=== PATIENT | female | born 1945 | race Caucasian/White ===

== ENCOUNTER → 2018-01-19 15:03 | Outpatient (CLI) | payer OTHER, SELFPAY ==
--- NOTE | 2018-01-19 15:09 | DI.RAD.S_ITS ---
PROCEDURE: XR CHEST 2V INDICATIONS: 73 old woman with cough. TECHNIQUE: 2 views of the chest were acquired. COMPARISON: [facility], , CHEST 2 VIEW, 08/16/2013, 9:53. FINDINGS: Surgical changes and devices: None. Lungs and pleura: No pleural effusions or pneumothorax. Lungs are clear. Mediastinum: Mediastinal contours are normal. Heart size is normal. Bones and chest wall: No suspicious bony abnormalities. Soft tissues appear unremarkable. IMPRESSION: No acute cardiopulmonary disease. Dictated by: Kevon Wheeler M.D. on 01/19/2018 at 16:39 Approved by: Kevon Wheeler M.D. on 01/19/2018 at 16:39
[2018-01-19 15:56] LABS: Add Manual Diff / Slide Review NO; Basophils Percent Auto 0.5 % (0-2); Hematocrit 40.4 % (36-46); Hemoglobin 13.9 g/dL (12.0-16.0); Lymphocytes Percent Auto 24.7 % (25-40); Mean Corpuscular HGB Conc 34.3 % (30-36); Mean Corpuscular Volume 84.5 fL (80-100); Monocytes Percent Auto 7.3 % (3-14); Neutrophils Absolute Auto 6600 /uL (3000-5900); Neutrophils Percent Auto 66.5 % (50-75); Platelet Count 309 X10^3/uL (150-400); Red Blood Cell Count 4.78 X10^6/uL (4.0-5.2); Red Cell Distribution Width 13.4 % (11.6-14.8); White Blood Cell Count 9.9 X10^3/uL (4.5-11.0)
[2018-01-19 16:54] LABS: Alanine Aminotransferase 19 IU/L (9-52); Albumin 4.2 g/dL (3.5-5.0); Albumin Globulin Ratio 1.4 (1.0-2.8); Alkaline Phosphatase 80 U/L (38-126); Aspartate Aminotransferase 16 IU/L (14-36); BUN Creatinine Ratio 21.7 (6-22); Bilirubin Total 0.4 mg/dL (0.2-1.3); Blood Urea Nitrogen 13 mg/dL (7-17); Calcium 9.5 mg/dL (8.4-10.2); Carbon Dioxide 25 mmol/L (22-32); Chloride 103 mmol/L (98-107); Estimated Glomerular Filt Rate > 60.0 mL/min (>60); Glucose 86 mg/dL (80-110); HEMOLYSIS < 15 (0-50); Potassium 4.4 mmol/L (3.4-5.1); Sodium 137 mmol/L (137-145); Total Protein 7.2 g/dL (6.3-8.2)
[2018-01-19 17:25] LABS: TSH w/ Reflex to FT4 1.82 uIU/mL (0.47-4.68)
== END ==
PROVIDERS: PCP Family Medicine; Visit Provider Family Medicine
DX: M79.7 Fibromyalgia (principal); K58.9 Irritable bowel syndrome, unspecified
CPT/HCPCS: 36415; 71046; 80053; 84443; 85025

== ENCOUNTER → 2018-05-03 12:38 | Outpatient (CLI) | payer OTHER, SELFPAY ==
--- NOTE | 2018-05-03 12:40 | DI.RAD.S_ITS ---
PROCEDURE: FL UPPER GI SERIES INDICATIONS: cough horseness gerd COMPARISON: None. FINDINGS: KUB: Preprocedural watch crystal molder film demonstrates a normal bowel gas pattern. No suspicious abdominal calcifications. Visualized solid organ contours appear normal. Bony structures appear unremarkable. Esophagus: Esophageal mucosa is normal on single-contrast views, and there is normal esophageal peristalsis. 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 No hiatal hernia or elicited gastroesophageal reflux. Stomach: The stomach is normally distensible, with normal rugal fold thickness. No mucosal masses or ulcers. Pylorus and duodenal bulb appear normal in morphology. Duodenal folds are normal in thickness as well. IMPRESSION: There is a smoothly marginated stricture which resistance passage of a 13 mm calibrated barium tablet for 3 minutes at the esophagogastric junction. A polypoid mass is not seen. The gastric lumen visualized and proximal small bowel appears normal. The patient reports significant reflux symptomatology over the course of this examination both spontaneous or elicited gastroesophageal reflux could not be documented. Dictated by: Ray Parada M.D. on 05/03/2018 at 13:39 Approved by: Ray Parada M.D. on 05/03/2018 at 13:42
== END ==
PROVIDERS: PCP Family Medicine; Visit Provider Family Medicine
DX: K22.2 Esophageal obstruction (principal); K21.9 Gastro-esophageal reflux disease without esophagitis; R49.0 Dysphonia; R05 Cough; E66.01 Morbid (severe) obesity due to excess calories
CPT/HCPCS: 74240

== ENCOUNTER 2018-11-14 09:30 | Emergency (ER) | payer OTHER, SELFPAY ==
[2018-11-14 09:35] VITALS: BP 119/77; PULSE 79; RESP 18; TEMP 35.9; O2SAT 97; BMI 30.7
[2018-11-14] MEDS: ALBUTEROL 2.5 MG/3 ML NEB (ADULT) INH (10:01)
[2018-11-14 10:02] VITALS: PULSE 74; RESP 16; O2SAT 98
[2018-11-14 11:03] VITALS: PULSE 73; RESP 16; O2SAT 100
--- NOTE | 2018-11-14 11:08 | ED.ALLEREA ---
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 this morning while she was riding in the car with the windows open. She reports pulled the stinger out from unaffected area after the burning sensation. She reports discomfort, redness, small swelling to left forearm along some difficulty breathing. She denies swelling to her tongue, throat or lips. She had taken Benadryl 25 mg p.o. prior to arrive in ED. Also she mixed half of the tab/cap of Benadryl makes with April water and applied on affected side. She received a of albuterol nebulizer treatment and has been using ice pack on affected site before evaluated by me. Related Data Previous Rx's Medication Instructions Recorded Nebulizer: Home Unit 0 dev INH BID #1 10/26/12 nystatin [Nyamyc] 100,000 u TOPICAL BID #1 bot 05/30/16 ACETAMINOPHEN 650 mg PO Q6HP PRN #300 tab 06/13/16 ipratropium-albuterol 3 ml IH BID #1 box 06/16/16 epinephrine [EpiPen Jr 2-Norbert] 0.15 mg IM PRN PRN #1 pkg 10/10/16 ysrpzwbkri-ikepjecxgepqy-nemn 1 tab PO Q6HP PRN #30 tab 07/14/17 indomethacin 25 mg PO TIDCC #90 cap 09/30/17 diphenoxylate-atropine 2.5 1 tab PO Q6HP PRN #20 tab 01/12/18 mg-0.025 mg tablet pseudoephedrine 30 mg tablet 30 mg PO Q4-6H PRN #30 tab 01/14/18 cyclobenzaprine 10 mg PO Q8HP #20 tab 01/20/18 ketoconazole [Nizoral] 2 % TOPICAL EVERY OTHER DAY #120 ml 01/20/18 dicyclomine 20 mg PO QDAY #90 tabs 06/03/18 famotidine 40 mg tablet 40 mg PO DAILY #60 tab 07/14/18 albuterol sulfate [Ventolin HFA] 1 puff INH Q6HP PRN #18 gm 07/15/18 beclomethasone dipropionate [Qvar] 1 puff INH BID #1 inh 07/15/18 alprazolam 0.25 mg tablet 0.25 mg PO ONCE PRN #30 tab 10/19/18 methocarbamol 500 mg tablet 500 mg PO QIDP PRN #30 tab 10/19/18 diclofenac 1 % topical gel 2 gram TOPICAL BIDP PRN #100 gram 10/22/18 prednisone 40 mg PO DAILY 4 Days #8 tab 11/14/18 Allergies Allergy/AdvReac Type Severity Reaction Status Date / Time venom-honey bee Allergy Severe Anaphylaxis Verified 11/14/18 09:45 [BEE VENOM (HONEY BEE)] crab Allergy Intermediate SWELLING, Verified 11/14/18 09:45 RASH, HIVES amoxicillin [AMOXICILLIN] Allergy Mild RASH Verified 11/14/18 09:45 codeine [CODEINE] Allergy Mild Verified 11/14/18 09:45 doxycycline [DOXYCYCLINE] Allergy Unknown Verified 11/14/18 09:45 petrolatum,white AdvReac Mild FAINT FROM Verified 11/14/18 09:45 [From PETROLEUM JELLY] FUMES hydrocodone [From VICODIN] AdvReac Unknown N/V Verified 11/14/18 09:45 morphine [MORPHINE] AdvReac Unknown N/V Verified 11/14/18 09:45 Review of Systems <TIMMY Branch - Last Filed: 11/14/18 22:06> Review of Systems General: Denies fever, chills, fatigue, malaise, sweats. HEENT: Denies sinus pain, ear pain, sore throat, difficulty swallowing, dizziness. Respiratory: Reports wheezing and dyspnea. Denies cough, hemoptysis, sputum, oropharyngeal edema Cardiovascular: Denies chest pain, palpitations, orthopnea, edema. Gastrointestinal: Denies nausea, vomiting, abdominal pain : Denies dysuria, frequency, incontinence, hematuria, urinary retention. Musculoskeletal: Denies weakness, joint pain or bony pain. Skin: See HPI Neurologic: Denies weakness, headache, numbness, change in speech, confusion, seizures, incoordination. Psychiatric: No concerning psychosocial issues. 12-point review of systems is negative except for those stated above. PFSH <TIMMY Branch - Last Filed: 11/14/18 22:06> Medical History Asthma (Chronic) Diverticular disease (Chronic) Fibromyalgia (Chronic) GERD (gastroesophageal reflux disease) (Chronic) IBS (irritable bowel syndrome) (Chronic) Sleep apnea (Chronic) Surgical History Deviated septum (Resolved) History of knee surgery (Resolved) Social History marital status: Smoking Status: Never smoker alcohol intake: never Social History marital status: Smoking Status: Never smoker alcohol intake: never Exam <TIMMY Branch - Last Filed: 11/14/18 22:06> Narrative Exam Narrative: GEN: Alert, oriented x 3, well appearing and nourished, and in no acute distress but apprehensive. Head: Normal cephalic, atraumatic. No scalp or temporal tenderness, palpable mass or rash. EYES: Pupils are equal, round, and reactive to light and accommodation. Extraocular muscles are intact bilaterally. There is no subconjunctival hemorrhage, exudate and sclera non-icteric. ENT: Hearing grossly intact. Nose without bleeding, purulent discharge. Mucous membrane moist, no mucosal lesion. Throat without erythema, tonsillar hypertrophy or exudate. Uvula in midline, airway patent without oropharyngeal edema. Neck: Trachea in midline. No JVD, non-tender without lymphadenopathy. No masses or thyroid megaly. Supple, non-tender and meningeal signs. CARDIAC: Normal regular rate and rhythm without murmurs, gallops, or rubs. No chest wall tenderness. No peripheral edema, cyanosis or pallor. Capillary refill is less than 2 seconds. RESPIRATORY: Lungs are cleat to auscultate bilaterally. No cough, wheezes, rales, or rhonchi. No stridor, respiratory distress, increase work of breathing, or accessary muscle used. Able to speak full sentences without difficulty. ABD: Abdomen soft, nontender and non-distended. No guarding or rebound tenderness to palpate. Bowel sounds are normal in all 4 quadrants. There is no palpable masses or organomegaly. EXT: Full painless ROM of all extremities with no loss of sensation, strength, effusion or edema. SKIN: <0.5 cm mildly elevated red papule on L volar aspect of forearm. Warm, dry, normal color for patient. No other erythema, lesions or rash. BACK: Nontender without deformity or crepitance. No flank tenderness. NEUROLOGICAL: Alert and oriented to place, time and person. Sensation and motor function intact bilaterally. No facial droops, dysphasia. PSYCHIATRIC: Good judgement and reason, without hallucinations, abnormal affect or abnormal behaviors during the examination. Initial Vital Signs Initial Vital Signs: Vital Signs Temperature 96.7 F L 11/14/18 09:35 Pulse Rate 79 11/14/18 09:35 Respiratory Rate 18 11/14/18 09:35 Blood Pressure 119/77 11/14/18 09:35 Pulse Oximetry 97 11/14/18 09:35 <Janessa Osborne MD - Last Filed: 11/16/18 07:44> Initial Vital Signs Initial Vital Signs: Vital Signs Temperature 96.7 F L 11/14/18 09:35 Pulse Rate 79 11/14/18 09:35 Respiratory Rate 18 11/14/18 09:35 Blood Pressure 119/77 11/14/18 09:35 Pulse Oximetry 97 11/14/18 09:35 Course <TIMMY Branch - Last Filed: 11/14/18 22:06> Orders Ordered: Discontinued Medications Albuterol (Ventolin) 2.5 mg INH NOW ONE Stop: 11/14/18 09:58 Last Admin: 11/14/18 10:01 Dose: 2.5 mg Prednisone (Deltasone) 40 mg PO NOW ONE Stop: 11/14/18 11:09 Last Admin: 11/14/18 12:13 Dose: 40 mg Ranitidine HCl (Zantac) 150 mg PO NOW ONE Stop: 11/14/18 11:09 Last Admin: 11/14/18 12:13 Dose: 150 mg Vital Signs - 8 hr 11/14/18 09:35 11/14/18 10:02 11/14/18 11:03 Temperature 96.7 F L Pulse Rate 79 74 73 Respiratory Rate 18 16 16 Blood Pressure 119/77 Blood Pressure [Left Arm] Pulse Oximetry 97 98 100 11/14/18 12:14 Temperature Pulse Rate 78 Respiratory Rate 16 Blood Pressure Blood Pressure [Left Arm] 133/78 Pulse Oximetry 100 <Janessa Osborne MD - Last Filed: 11/16/18 07:44> Orders Ordered: Discontinued Medications Albuterol (Ventolin) 2.5 mg INH NOW ONE Stop: 11/14/18 09:58 Last Admin: 11/14/18 10:01 Dose: 2.5 mg Prednisone (Deltasone) 40 mg PO NOW ONE Stop: 11/14/18 11:09 Last Admin: 11/14/18 12:13 Dose: 40 mg Ranitidine HCl (Zantac) 150 mg PO NOW ONE Stop: 11/14/18 11:09 Last Admin: 11/14/18 12:13 Dose: 150 mg Vital Signs - 8 hr 11/14/18 09:35 11/14/18 10:02 11/14/18 11:03 Temperature 96.7 F L Pulse Rate 79 74 73 Respiratory Rate 18 16 16 Blood Pressure 119/77 Blood Pressure [Left Arm] Pulse Oximetry 97 98 100 11/14/18 12:14 Temperature Pulse Rate 78 Respiratory Rate 16 Blood Pressure Blood Pressure [Left Arm] 133/[address] [facility] - Allergic Reaction <TIMMY Branch - Last Filed: 11/14/18 22:06> Differential Diagnosis Differential diagnosis: Likely anaphylaxis and allergic reaction Medical Records Attestation: I reviewed the patient's medical records. 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 She verbalized some difficulty breathing and wheezing and she had taken own Benadryl 25 mg prior she arrived in the ED. She reports had melted half tab of Benadryl with the april water and applied on affected site note this may help her. She was treated with 1 dose of nebulizer treatment prior to my evaluation. Her lungs were clear to auscultate without wheezing, stridor, no increase in accessory muscle used, breathing was easy and her airway was patent. The reaction was localized to the left forearm which has improved with her own Benadryl use and ice packs since she got to ED. Given her head Daniella history of anaphylactic allergy reaction, patient was medicated with prednisone and Zantac. Since she takes Pepcid daily at home she has not prescribed for home use. We discussed in length about using prednisone and a short burst duration without tapering this. Patient is initially expressed having a Medrol pack at home which she has used for last 7 or 8 months that was prescribed by her primary care physician. After lengthy discussion about allergic reaction and treatment with Benadryl, histamine alba, and steroids, the patient agrees to the plan of care. Multiple questions expressed by the patient on medications were answered for clarification. We also discussed in length on red flag symptoms such as oropharyngeal edema, chest pain, difficulty breathing, feeling faint and to call emergency services. Also we discussed signs and symptoms for local skin infection such as increasing redness/swelling/pain/warmth/pain/fever and the patient verbalized the understanding. Discharge Plan Departure Patient Disposition: Home Clinical Impression: Allergic reaction to bee sting Discharge Date/Time: 11/14/18 12:05 Interventions: ED Discharge Assessment Last Done: 11/14/18 12:05 Instructions: DI for Insect Allergy Activity Restrictions/Additional Instructions: You have been diagnosed with [ bee sting allergy reaction ]. What to do: *Take your medications as directed. 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 Today it does not appear that you're having anaphylactic allergic reaction here. You could continue use you're Pepcid (famotidine) once a day for a histamine alba and this works for her allergy as well. Your blood glucose may be increased and her stomach may be upset due to prednisone, so please take precaution. *Follow up with your primary care provider in 2-3 days, call for an appointment. Let them know you were seen in the ED and that we asked you to be seen in follow up. *Return to ED if you have any new, worsening, or concerning symptoms, such as [swelling to her tongue or throat, difficulty breathing, chest pain, fainting, if the area under arm has increased with swelling, redness, pain, pus-like discharge, fever]. Prescriptions: New prednisone 20 mg tablet 40 mg PO DAILY 4 Days Qty: 8 RF: 0 No Action Nebulizer: Home Unit INH BID Qty: 1 RF: 0 nystatin [Nyamyc] 30 GM powder 100,000 u Topical BID Qty: 1 RF: 1 ACETAMINOPHEN 650 mg PO Q6HP PRNQty: 300 RF: 5 ipratropium-albuterol 3 ML solution for nebulization 3 ml IH BID Qty: 1 RF: 2 epinephrine [EpiPen Jr 2-Norbert] 0.15 MG/0.3 ML auto-injector 0.15 mg IM PRN PRNQty: 1 RF: 1 djlzjthhjn-autjfoufsbfml-accg 1 EACH tablet 1 tab PO Q6HP PRNQty: 30 RF: 1 indomethacin 25 mg capsule 25 mg PO TIDCC Qty: 90 RF: 0 diphenoxylate-atropine 2.5-0.025 mg tablet 1 tab PO Q6HP PRN (Reason: diarrhea) Qty: 20 RF: 0 cyclobenzaprine 10 mg tablet 10 mg PO Q8HP Qty: 20 RF: 2 ketoconazole [Nizoral] 2 % shampoo 2 % Topical EVERY OTHER DAY Qty: 120 RF: 3 dicyclomine 20 mg tablet 20 mg PO QDAY Qty: 90 RF: 2 famotidine [Pepcid] 40 mg tablet 40 mg PO DAILY Qty: 60 RF: 11 Qvar 80 mcg/actuation aerosol 1 puff INH BID Qty: 1 RF: 11 albuterol sulfate [Ventolin HFA] 90 mcg/actuation HFA aerosol inhaler 1 puff INH Q6HP PRNQty: 18 RF: 3 methocarbamol 500 mg tablet 500 mg PO QIDP PRN (Reason: PAIN) Qty: 30 RF: 2 alprazolam 0.25 mg tablet 0.25 mg PO ONCE PRN (Reason: anxiety) Qty: 30 RF: 1 diclofenac sodium [Voltaren] 1 % gel 2 gram Topical BIDP PRN (Reason: pain) Qty: 100 RF: 0 pseudoephedrine HCl [Sudafed] 30 mg tablet 30 mg PO Q4-6H PRN (Reason: nasal congestion) Qty: 30 RF: 3 Referrals: Nithin Adkins MD [Primary Care Provider] -
[2018-11-14] MEDS: predniSONE 20 MG TABLET 40 MG PO (12:13)
[2018-11-14 12:14] VITALS: BP 133/78; PULSE 78; RESP 16; O2SAT 100
== END 2018-11-14 12:05 | disposition home or self-care (01) ==
PROVIDERS: Emergency Provider Nurse Practitioner Family; PCP Family Medicine
DX: T63.441A Toxic effect of venom of bees, accidental (unintentional), initial encounter (principal)
CPT/HCPCS: 94640; 99283; J7613

== ENCOUNTER → 2020-06-26 14:12 | Outpatient (CLI) | payer OTHER, SELFPAY ==
--- NOTE | 2020-06-26 14:14 | DI.RAD.S_ITS ---
PROCEDURE: XR CERVICAL SPINE 2V OR 3V INDICATIONS: Neck and shoulder pain TECHNIQUE: 3 view(s) of the cervical spine were acquired. COMPARISON: [facility], CERVICAL SPINE 2 OR 3 VIEWS, 04/23/2011, 15:39. [facility], CERVICAL SPINE 2 OR 3 VIEWS, 12/15/2013, 17:16. [facility], C-SPINE COMPLETE 6 OR MORE VWS, 11/02/2014, 17:21. FINDINGS: Bones: No fractures or dislocations to the C6 level. The lateral masses of C1 appear intact on the odontoid view. No suspicious bony lesions. There is severe degenerative disc disease at C5-C6 and C6-C7. Bilateral facet arthropathy, severe at C3-C4 and C4-C5. Soft tissues: No prevertebral soft tissue swelling. IMPRESSION: Severe degenerative disc and facet disease in cervical. Dictated by: Kevon Wheeler M.D. on 06/26/2020 at 15:54 Approved by: Kevon Wheeler M.D. on 06/26/2020 at 16:06
--- NOTE | 2020-06-26 14:14 | DI.RAD.S_ITS ---
PROCEDURE: XR SHOULDER LT MIN 2V INDICATIONS: Neck and shoulder pain TECHNIQUE: 3 views of the shoulder were acquired. COMPARISON: None. FINDINGS: Bones: No fractures or dislocations. No suspicious bony lesions. Visualized ribs appear intact. There is bhrsybvx-qk-mqxcwd glenohumeral joint and acromioclavicular joint degeneration. Soft tissues: Superior migration of humeral head, likely secondary to rotator cuff tendon tear. IMPRESSION: 1. Qavxuphh-ts-qyjyxa osteoarthritis of the left shoulder. 2. Suspect rotator the cuff tendon tear. MRI is recommended for further evaluation if clinically indicated. Dictated by: Kevon Wheeler M.D. on 06/26/2020 at 17:27 Approved by: Kevon Wheeler M.D. on 06/26/2020 at 17:29
== END ==
PROVIDERS: PCP Family Medicine; Referring Provider Family Medicine; Visit Provider Family Medicine
DX: M25.512 Pain in left shoulder (principal); M19.012 Primary osteoarthritis, left shoulder; M50.322 Other cervical disc degeneration at C5-C6 level; M47.812 Spondylosis without myelopathy or radiculopathy, cervical region
CPT/HCPCS: 72040; 73030

== ENCOUNTER → 2021-04-04 12:10 | Outpatient (CLI) | payer OTHER, SELFPAY ==
--- NOTE | 2021-04-04 12:12 | DI.MG.S_ITS ---
BILATERAL DIGITAL DIAGNOSTIC MAMMOGRAM 3D/2D: 04/04/2021 CLINICAL: Right breast pain. Comparison is made to exams dated: 08/26/2017 mammogram, 01/16/2012 mammogram, and 08/30/2010 mammogram - [facility]. There are scattered fibroglandular elements in both breasts. No significant masses, calcifications, or other findings are seen in either breast. Specifically, no finding to explain the patient's diffuse bilateral pain. IMPRESSION: NEGATIVE There is no abnormality seen in either breast or in either axilla to correspond with the diffuse pain in the upper outer quadrant and in axillae. There is no mammographic evidence of malignancy. Return to annual mammogram screening schedule is recommended. Findings and recommendations were conveyed to the patient at time of exam. This exam was interpreted at Station ID: [id number]. NOTE: For mammograms, a report in lay terms will be sent to the patient. Approximately 15% of breast malignancies will not be visualized mammographically. In the management of a palpable breast mass, a negative mammogram must not discourage biopsy of a clinically suspicious lesion. Electronically Signed By: Barbie bill/:04/04/2021 13:04:44 letter sent: Normal Exam ACR BI-RADS Category 1: Negative [id number]
== END ==
PROVIDERS: PCP Family Medicine; Referring Provider Physician Assistant; Visit Provider Physician Assistant
DX: N64.4 Mastodynia (principal)
CPT/HCPCS: 77066; G0279

== ENCOUNTER → 2021-11-15 07:33 | Outpatient (CLI) | payer OTHER, SELFPAY ==
[2021-11-15 08:30] LABS: Add Manual Diff / Slide Review NO; Basophils Absolute Auto 100 /uL (0-100); Basophils Percent Auto 0.6 % (0-2); Eosinophils Absolute Auto 100 /uL (0-450); Hematocrit 34.1 % (36-46); Hemoglobin 11.6 g/dL (12.0-16.0); Lymphocytes Absolute Auto 1900 /uL (1100-4500); Lymphocytes Percent Auto 19.3 % (25-40); Mean Corpuscular Hemoglobin 27.7 PG (26-34); Mean Corpuscular Volume 81.5 fL (80-100); Monocytes Absolute Auto 800 /uL (0-900); Monocytes Percent Auto 7.9 % (3-14); Neutrophils Absolute Auto 6800 /uL (1500-7000); Neutrophils Percent Auto 71.2 % (50-75); Platelet Count 358 X10^3/uL (150-400); Red Blood Cell Count 4.19 X10^6/uL (4.0-5.2); White Blood Cell Count 9.6 X10^3/uL (4.5-11.0)
[2021-11-15 09:24] LABS: Alanine Aminotransferase 9 IU/L (<35); Albumin 4.2 g/dL (3.5-5.0); Albumin Globulin Ratio 1.4 (1.0-2.8); Alkaline Phosphatase 77 U/L (38-126); Aspartate Aminotransferase 16 IU/L (14-36); Bilirubin Total 0.9 mg/dL (0.2-1.3); Blood Urea Nitrogen 11 mg/dL (7-17); Calcium 9.5 mg/dL (8.4-10.2); Carbon Dioxide 24 mmol/L (22-32); Chloride 102 mmol/L (98-107); Estimated Glomerular Filt Rate > 60 mL/min (>60); Globulin 3.1 g/dL (1.7-4.1); Glucose 91 mg/dL (80-110); HEMOLYSIS < 15 (0-50); Potassium 4.3 mmol/L (3.4-5.1); Sodium 136 mmol/L (137-145); Total Protein 7.3 g/dL (6.3-8.2)
[2021-11-15 09:57] LABS: TSH w/ Reflex to FT4 1.93 uIU/mL (0.47-4.68)
== END ==
PROVIDERS: PCP Family Medicine; Referring Provider Family Medicine; Visit Provider Family Medicine
DX: Z13.9 Encounter for screening, unspecified (principal)
CPT/HCPCS: 36415; 80053; 84443; 85025

== ENCOUNTER → 2022-05-25 10:13 | Outpatient (CLI) | payer OTHER, SELFPAY ==
[2022-05-25 10:54] LABS: Hematocrit 34.6 % (36-46); Hemoglobin 11.5 g/dL (12.0-16.0)
[2022-05-25 11:07] LABS: HEMOLYSIS < 15 (0-50); Iron 38 ug/dL (37-170)
[2022-05-25 11:16] LABS: Transferrin 200 mg/dL (206-381)
[2022-05-25 11:17] LABS: Percent Iron Saturation 15 % (15-50); Total Iron Binding Capacity 260 ug/dL (265-497)
[2022-05-25 11:19] LABS: Ferritin 38 ng/mL (11-264)
== END ==
PROVIDERS: PCP Family Medicine; Referring Provider Physician Assistant; Visit Provider Physician Assistant
DX: D50.9 Iron deficiency anemia, unspecified (principal)
CPT/HCPCS: 36415; 82728; 83540; 83550; 85014; 85018

== ENCOUNTER → 2022-09-04 13:16 | Outpatient (CLI) | payer OTHER, SELFPAY | PROVIDERS: Absent Provider Family Medicine; Family Provider Family Medicine; PCP Family Medicine; Referring Provider Physical Medicine & Rehabilitation; Visit Provider Physical Medicine & Rehabilitation | DX: M47.22 Other spondylosis with radiculopathy, cervical region (principal); G56.00 Carpal tunnel syndrome, unspecified upper limb | CPT/HCPCS: 95885; 95886; 95910 ==

== ENCOUNTER → 2022-10-06 14:41 | Outpatient (CLI) | payer OTHER, SELFPAY ==
[2022-10-06 16:23] LABS: Hematocrit 34.6 % (36-46); Hemoglobin 11.4 g/dL (12.0-16.0)
[2022-10-06 16:53] LABS: HEMOLYSIS < 15 (0-50); Iron 18 ug/dL (37-170)
[2022-10-06 17:04] LABS: Percent Iron Saturation 6 % (15-50); Total Iron Binding Capacity 285 ug/dL (265-497); Transferrin 206 mg/dL (206-381)
== END ==
PROVIDERS: Family Provider Family Medicine; PCP Family Medicine; Referring Provider Family Medicine; Visit Provider Family Medicine
DX: D50.9 Iron deficiency anemia, unspecified (principal)
CPT/HCPCS: 36415; 83540; 83550; 85014; 85018

== ENCOUNTER → 2022-11-24 16:08 | Outpatient (CLI) | payer OTHER, SELFPAY ==
[2022-11-24 16:42] LABS: Hematocrit 32.9 % (36-46); Hemoglobin 10.9 g/dL (12.0-16.0)
[2022-11-24 17:39] LABS: Ferritin 55 ng/mL (11-264)
[2022-12-11 13:36] LABS: Appearance Urine UA CLEAR; Bilirubin Urine UA NEGATIVE (NEGATIVE); Color Urine UA YELLOW; Glucose Urine UA NEGATIVE (Negative); Ketones Urine UA NEGATIVE (NEGATIVE); Leukocyte Esterase Urine UA NEGATIVE (NEGATIVE); Nitrite Urine UA NEGATIVE (Negative); Occult Blood Urine UA NEGATIVE (Negative); Protein Urine UA NEGATIVE (Negative); Urobilinogen Urine UA 0.2 E.U./dL (0.2)
[2022-12-11 13:54] LABS: pH Urine UA 6.5 (4.5-8.0)
[2022-12-11 14:00] LABS: Bacteria Urine None Seen; Culture Indicated Urine Cult Not Indicated; RBC Urine None Seen (0-5/HPF); Squamous Epithelial Cell Urine None Seen (0-5/HPF); WBC Urine None Seen (0-5/HPF)
== END ==
PROVIDERS: Family Provider Family Medicine; PCP Family Medicine; Referring Provider Family Medicine; Visit Provider Family Medicine
DX: D64.9 Anemia, unspecified (principal); R30.0 Dysuria
CPT/HCPCS: 36415; 81001; 82728; 85014; 85018

== ENCOUNTER → 2023-04-23 12:46 | Outpatient (CLI) | payer OTHER, SELFPAY ==
[2023-04-23 13:46] LABS: Add Manual Diff / Slide Review NO; Basophils Absolute Auto 100 /uL (0-100); Basophils Percent Auto 0.5 % (0-2); Eosinophils Absolute Auto 100 /uL (0-450); Eosinophils Percent Auto 1.1 % (2-4); Hematocrit 33.1 % (36-46); Lymphocytes Absolute Auto 2200 /uL (1100-4500); Lymphocytes Percent Auto 16.3 % (25-40); Mean Corpuscular HGB Conc 33.1 % (30-36); Mean Corpuscular Hemoglobin 26.6 PG (26-34); Mean Corpuscular Volume 80.6 fL (80-100); Monocytes Absolute Auto 1000 /uL (0-900); Monocytes Percent Auto 7.1 % (3-14); Neutrophils Absolute Auto 10200 /uL (1500-7000); Platelet Count 401 X10^3/uL (150-400); Red Blood Cell Count 4.11 X10^6/uL (4.0-5.2); Red Cell Distribution Width 14.2 % (11.6-14.8); White Blood Cell Count 13.6 X10^3/uL (4.5-11.0)
[2023-04-23 14:03] LABS: Alanine Aminotransferase 11 IU/L (<35); Albumin 3.9 g/dL (3.5-5.0); Albumin Globulin Ratio 1.1 (1.0-2.8); Alkaline Phosphatase 88 U/L (38-126); BUN Creatinine Ratio 29.2 (6-22); Bilirubin Total 0.6 mg/dL (0.2-1.3); Blood Urea Nitrogen 14 mg/dL (7-17); Calcium 9.5 mg/dL (8.4-10.2); Carbon Dioxide 25 mmol/L (22-32); Chloride 99 mmol/L (98-107); Estimated Glomerular Filt Rate > 60 mL/min (>60); Globulin 3.7 g/dL (1.7-4.1); Glucose 95 mg/dL (80-110); HEMOLYSIS < 15 (0-50); Potassium 4.3 mmol/L (3.4-5.1); Sodium 132 mmol/L (137-145); Total Protein 7.6 g/dL (6.3-8.2)
[2023-04-23 14:07] LABS: HEMOLYSIS < 15 (0-50); Iron 30 ug/dL (37-170)
[2023-04-23 14:17] LABS: Percent Iron Saturation 12 % (15-50); Total Iron Binding Capacity 251 ug/dL (265-497); Transferrin 201 mg/dL (206-381)
[2023-04-23 14:38] LABS: Ferritin 42 ng/mL (11-264)
[2023-04-23 14:52] LABS: Vitamin B12 964 pg/mL (239-931)
[2023-04-24 15:27] LABS: Aspartate Aminotransferase 24 IU/L (14-36)
== END ==
PROVIDERS: Physician Assistant; Family Provider Family Medicine; PCP Family Medicine; Referring Provider Family Medicine; Visit Provider Family Medicine
DX: D50.9 Iron deficiency anemia, unspecified (principal); E53.8 Deficiency of other specified B group vitamins; E66.01 Morbid (severe) obesity due to excess calories; K58.9 Irritable bowel syndrome, unspecified
CPT/HCPCS: 36415; 80053; 82607; 82728; 83540; 83550; 85025

== ENCOUNTER → 2023-05-05 12:05 | Outpatient (CLI) | payer OTHER, SELFPAY ==
--- NOTE | 2023-05-05 12:07 | DI.RAD.S_ITS ---
PROCEDURE: XR HIP W PEL IF DONE HAMLET MIN 4V INDICATIONS: Worsening left hip; trouble w/gait balance TECHNIQUE: AP pelvis with lateral view(s) of the bilateral hip(s). COMPARISON: None. FINDINGS: Bones: No fractures or dislocations. Pelvic ring appears intact. No suspicious bony lesions. Severe bilateral degenerative hip joint space narrowing with subchondral sclerosis and periarticular osteophytes. It is slightly more prominent on the left. There is mild appearance of left femoral head flattening on the left. Soft tissues: The visualized bowel gas pattern is normal. No suspicious soft tissue calcifications. Significant colonic stool. 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 Dictated by: Giselle Diallo M.D. on 05/05/2023 at 17:47 Approved by: Giselle Diallo M.D. on 05/05/2023 at 17:49
== END ==
PROVIDERS: Family Provider Family Medicine; PCP Family Medicine; Referring Provider Physician Assistant; Visit Provider Physician Assistant
DX: M25.552 Pain in left hip (principal); R26.9 Unspecified abnormalities of gait and mobility; G89.29 Other chronic pain
CPT/HCPCS: 73522

== ENCOUNTER 2023-08-12 13:30 | Emergency (ER) | payer OTHER, SELFPAY ==
[2023-08-12] VITALS (22 sets, daily range): BP systolic 115–152; BP diastolic 58–69; PULSE 100–129; RESP 18–32; TEMP 37.3–37.4; O2SAT 92–99; BMI 28.3
--- NOTE | 2023-08-12 14:06 | PC.NURSE ---
Pt reports urinating fecal matter. Pt was told she had a CVF and states she has a hx of IBS. Pt reports home temp 99.2
[2023-08-12 14:48] LABS: Culture Indicated Urine Cult Not Indicated
[2023-08-12 15:12] LABS: Hematocrit 35.4 % (36-46); Hemoglobin 11.4 g/dL (12.0-16.0); Mean Corpuscular HGB Conc 32.1 % (30-36); Mean Corpuscular Hemoglobin 25.6 PG (26-34); Mean Corpuscular Volume 79.9 fL (80-100); Platelet Count 643 X10^3/uL (150-400); Red Blood Cell Count 4.43 X10^6/uL (4.0-5.2); White Blood Cell Count 28.7 X10^3/uL (4.5-11.0)
[2023-08-12 15:22] LABS: Add Manual Diff / Slide Review YES
[2023-08-12 15:25] LABS: Alanine Aminotransferase 10 IU/L (<35); Albumin 4.1 g/dL (3.5-5.0); Albumin Globulin Ratio 1.1 (1.0-2.8); Alkaline Phosphatase 128 U/L (38-126); Aspartate Aminotransferase 15 IU/L (14-36); BUN Creatinine Ratio 27.3 (6-22); Blood Urea Nitrogen 18 mg/dL (7-17); Calcium 9.7 mg/dL (8.4-10.2); Carbon Dioxide 19 mmol/L (22-32); Chloride 103 mmol/L (98-107); Estimated Glomerular Filt Rate > 60 mL/min (>60); Globulin 3.8 g/dL (1.7-4.1); Glucose 134 mg/dL (80-110); HEMOLYSIS 21 (0-50); Lipase < 10 U/L (23-300); Potassium 4.5 mmol/L (3.4-5.1); Sodium 134 mmol/L (137-145); Total Protein 7.9 g/dL (6.3-8.2)
[2023-08-12 16:03] LABS: Neutrophils Absolute Manual 26117 /uL (3000-5900); Total Cells Counted 100
[2023-08-12 16:04] LABS: RBC Morphology Normal Morphology; Toxic Granulation Present
[2023-08-12 16:36] LABS: Lactate (Lactic Acid) 1.9 mmol/L (0.7-2.1)
--- NOTE | 2023-08-12 16:51 | ED_ITS ---
HPI - General Adult <Lianna Henriquez MD - Last Filed: 08/17/23 07:35> General Chief complaint: Urogenital-Female Stated complaint: CVF Fisutla Leaking Time Seen by Provider: 08/12/23 15:05 Source: patient and EMS Mode of arrival: EMS History of Present Illness HPI narrative: 78-year-old woman with a complex medical history including fibromyalgia, colitis, avascular necrosis of the left hip needing surgery, chronic pain with recurrent trigger injections who comes in today complaining of colovesical fistula. In looking through notes I do not see documentation of prior colovesical fistula however her report of general malaise for the last 6 weeks with increasing lower abdominal pain and then at 4:00 a.m. she got up to void and had essentially fecal material coming out of her urethra. She noted that she had some solid stool coming from her rectum as well. She continues to have fecal effluvium coming from her urethra and seems to be very clear that it is not from her vagina. She has not had a hysterectomy previously. She has not complaining of fever or shortness a breath. She does note that she is unable to extend flexor rotate her left hip because of the avascular necrosis and is hoping to have surgery for this in 2-3 months. Her review of systems is markedly positive which seems to be close to her baseline and includes headache, generalized myalgias, decreased appetite, no chest pain and no palpitations, upper abdominal pain, pelvic pain, increasing fatigue, does not note lower extremity edema Related Data Home Medications Medication Instructions Recorded Confirmed cholecalciferol (vitamin D3) 250 500 mcg PO DAILY 05/21/22 07/27/23 mcg (10,000 unit) capsule mecobalamin (vitamin B12) 1,000 500 mcg PO BID 05/21/22 07/27/23 mcg chewable tablet zinc gluconate 50 mg tablet 50 mg PO DAILY 05/21/22 07/27/23 hydroxychloroquine 200 mg tablet 200 mg PO DAILY 06/23/22 07/27/23 diphenhydramine HCl 25 mg capsule 25 mg PO DAILY PRN allergic 12/11/22 07/27/23 (Allergy (diphenhydramine)) reaction epinephrine 0.3 mg/0.3 mL 0.3 mg IM ONCE 12/11/22 07/27/23 injection, auto-injector pseudoephedrine HCl 120 mg 60 mg PO Q12H 12/11/22 07/27/23 tablet,extended release (Sudafed 12 Hour) ferrous gluconate 324 mg (38 mg 324 mg PO BID 05/05/23 07/27/23 iron) tablet Previous Rx's Medication Instructions Recorded diclofenac sodium 1 % topical gel 2 g topical BIDP PRN pain #100 05/21/22 grams dicyclomine 20 mg tablet See Rx Instructions .Route 09/10/22 .COMPLEX #90 tabs wafohporvt-lzwjvtrqeeksy-emymjmqh See Rx Instructions .Route 11/24/22 50 mg-325 mg-40 mg tablet .COMPLEX #30 tabs ketoconazole 2 % shampoo 1 applic topical 3XW #120 mL 01/02/23 indomethacin 25 mg capsule 25 mg PO 3XD #90 caps 02/12/23 methocarbamol 500 mg tablet See Rx Instructions .Route 04/03/23 .COMPLEX #30 tabs albuterol sulfate 90 mcg/actuation 1 puff inhalation Q4-6H PRN for 05/05/23 aerosol inhaler wheezing #18 grams lidocaine 4 % topical patch 1 patch topical .COMPLEX PRN pain 06/18/23 #10 ea gabapentin 100 mg capsule See Rx Instructions PO BEDTIME #30 06/25/23 caps alprazolam 0.25 mg tablet See Rx Instructions .Route 07/16/23 .COMPLEX #30 tabs diphenoxylate-atropine 2.5 1 tab PO Q6H PRN diarrhea #20 tabs 07/21/23 mg-0.025 mg tablet omeprazole 40 mg capsule,delayed 40 mg PO DAILY #90 caps 07/27/23 release Allergies Allergy/AdvReac Type Severity Reaction Status Date / Time venom-honey bee Allergy Severe Anaphylaxis Verified 07/27/23 15:10 [BEE VENOM (HONEY BEE)] crab Allergy Intermediate SWELLING, Verified 07/27/23 15:10 RASH, HIVES amoxicillin [AMOXICILLIN] Allergy Mild RASH Verified 07/27/23 15:10 codeine [CODEINE] Allergy Mild Verified 07/27/23 15:10 doxycycline [DOXYCYCLINE] Allergy Unknown Verified 07/27/23 15:10 petrolatum,white AdvReac Mild FAINT FROM Verified 07/27/23 15:10 [From PETROLEUM JELLY] FUMES hydrocodone [From VICODIN] AdvReac Unknown N/V Verified 07/27/23 15:10 morphine [MORPHINE] AdvReac Unknown N/V Verified 07/27/23 15:10 Review of Systems <Lianna Henriquez MD - Last Filed: 08/17/23 07:35> Review of Systems Narrative: Pertinent positive and negative findings as per HPI Patient History <Lianna Henriquez MD - Last Filed: 08/17/23 07:35> Medical History (Updated 08/12/23 @ 23:16 by Tamar Maya MD) Dysuria Spinal stenosis of lumbar region CTS (carpal tunnel syndrome) Left rotator cuff tear Breast pain, right Gynecomastia, female Chronic sinusitis Fibromyalgia GERD (gastroesophageal reflux disease) IBS (irritable bowel syndrome) Asthma Sleep apnea Diverticular disease Degeneration of intervertebral disc of cervical region (05/25/13) Surgical History (Updated 09/23/22 @ 15:24 by Ca Mitchell) Deviated septum History of knee surgery Social History (System 09/23/22 @ 15:24 by Ca Mitchell) marital status: Smoking Status: Never smoker alcohol intake: never Smoking Status: Never smoker Substance Use Type: does not use Exam <Lianna Henriquez MD - Last Filed: 08/17/23 07:35> Initial Vital Signs Initial Vital Signs: Vital Signs Pulse Rate 120 H 08/12/23 13:38 Blood Pressure 146/60 H 08/12/23 13:38 Pulse Oximetry 92 08/12/23 13:38 General: Somewhat disheveled but in no acute distress, remarkably tangential history eventually leading to presenting complaint, she is able to speak in full sentences HEENT: Moist mucous membranes, normal sclera with reactive pupils, Respiratory: Lungs are clear to auscultation, no wheezing no rales no rhonchi. Full and symmetrical air movement Cardiac: Regular rate and rhythm no murmurs no bruits Abdomen: Soft, lower abdominal tenderness without rebound or guarding Pelvic exam: Exam is significantly limited by the fact that she is in an ER gurney, she can not rotate her left hip at all. There is some minor irritation to the internal labia I do not appreciate any vaginal discharge at this time Skin: Warm and dry, no rashes Neurologic: Grossly neurologically intact with no obvious asymmetries or abnormalities Extremities: Limited movement left hip, 1+ bilateral lower extremity edema, well-perfused Psych: Cooperative, appropriate insight and affect <Tamar Maya MD - Last Filed: 08/13/23 01:22> Initial Vital Signs Initial Vital Signs: Vital Signs Pulse Rate 120 H 08/12/23 13:38 Blood Pressure 146/60 H 08/12/23 13:38 Pulse Oximetry 92 08/12/23 13:38 Course <Lianna Henriquez MD - Last Filed: 08/17/23 07:35> Orders Ordered: Discontinued Medications Sodium Chloride (Normal Saline 0.9%) 1,000 mls @ 1,000 mls/hr IV BOLUS ONE Stop: 08/12/23 18:10 Last Infusion: 08/12/23 19:41 Dose: Infused Documented By: Admin: 08/12/23 18:07 Dose: 1,000 mls/hr Documented By: JESSE Sodium Chloride (Normal Saline 0.9%) 1,000 mls @ 1,000 mls/hr IV BOLUS ONE Stop: 08/13/23 00:24 Last Infusion: 08/13/23 01:01 Dose: Infused Documented By: Admin: 08/12/23 23:49 Dose: 1,000 mls/hr Documented By: BRIDGER Ondansetron HCl (Ondansetron 4 Mg Odt) 4 mg PO NOW PRN PRN Reason: Nausea And Vomiting Ondansetron HCl (Ondansetron 4 Mg/2 Ml Inj) 4 mg IV NOW PRN PRN Reason: Nausea And Vomiting Vital Signs Vital signs: Vital Signs - 8 hr 08/12/23 17:30 08/12/23 17:30 08/12/23 18:08 Temperature Pulse Rate 113 H 109 H Respiratory Rate 22 Blood Pressure 140/64 Pulse Oximetry 96 96 Oxygen Delivery Method 08/12/23 18:30 08/12/23 19:00 08/12/23 19:30 Temperature Pulse Rate 105 H 102 H 119 H Respiratory Rate 20 32 H 31 H Blood Pressure Pulse Oximetry Oxygen Delivery Method 08/12/23 20:56 08/12/23 20:56 08/12/23 20:58 Temperature 99.3 F Pulse Rate 106 H 109 H Respiratory Rate 18 Blood Pressure 115/58 L 115/58 L Pulse Oximetry 97 97 Oxygen Delivery Method Room Air Room Air 08/12/23 22:23 04/24/24 22:24 08/12/23 22:24 Temperature Pulse Rate 105 H 105 H Respiratory Rate 19 Blood Pressure 140/63 Pulse Oximetry 95 99 Oxygen Delivery Method Room Air 08/12/23 22:30 08/12/23 22:30 08/12/23 23:00 Temperature Pulse Rate 106 H 107 H Respiratory Rate 21 22 Blood Pressure 152/69 H Pulse Oximetry 98 Oxygen Delivery Method Room Air 08/12/23 23:00 08/12/23 23:30 08/12/23 23:30 Temperature Pulse Rate 102 H Respiratory Rate 21 Blood Pressure 149/64 H 140/63 Pulse Oximetry 99 Oxygen Delivery Method Room Air 08/13/23 00:00 08/13/23 00:00 08/13/23 00:30 Temperature Pulse Rate 104 H 104 H Respiratory Rate 23 17 Blood Pressure 142/66 H 141/72 H Pulse Oximetry 98 98 Oxygen Delivery Method Room Air Room Air 08/13/23 00:30 08/13/23 01:00 Temperature Pulse Rate 107 H Respiratory Rate 20 Blood Pressure 141/72 H 132/63 Pulse Oximetry Oxygen Delivery Method <Tamar Maya MD - Last Filed: 08/13/23 01:22> Orders Ordered: Discontinued Medications Sodium Chloride (Normal Saline 0.9%) 1,000 mls @ 1,000 mls/hr IV BOLUS ONE Stop: 08/12/23 18:10 Last Infusion: 08/12/23 19:41 Dose: Infused Documented By: Admin: 08/12/23 18:07 Dose: 1,000 mls/hr Documented By: JESSE Sodium Chloride (Normal Saline 0.9%) 1,000 mls @ 1,000 mls/hr IV BOLUS ONE Stop: 08/13/23 00:24 Last Infusion: 08/13/23 01:01 Dose: Infused Documented By: Admin: 08/12/23 23:49 Dose: 1,000 mls/hr Documented By: BRIDGER Ondansetron HCl (Ondansetron 4 Mg Odt) 4 mg PO NOW PRN PRN Reason: Nausea And Vomiting Ondansetron HCl (Ondansetron 4 Mg/2 Ml Inj) 4 mg IV NOW PRN PRN Reason: Nausea And Vomiting Vital Signs Vital signs: Vital Signs - 8 hr 08/12/23 17:30 08/12/23 17:30 08/12/23 18:08 Temperature Pulse Rate 113 H 109 H Respiratory Rate 22 Blood Pressure 140/64 Pulse Oximetry 96 96 Oxygen Delivery Method 08/12/23 18:30 08/12/23 19:00 08/12/23 19:30 Temperature Pulse Rate 105 H 102 H 119 H Respiratory Rate 20 32 H 31 H Blood Pressure Pulse Oximetry Oxygen Delivery Method 08/12/23 20:56 08/12/23 20:56 08/12/23 20:58 Temperature 99.3 F Pulse Rate 106 H 109 H Respiratory Rate 18 Blood Pressure 115/58 L 115/58 L Pulse Oximetry 97 97 Oxygen Delivery Method Room Air Room Air 08/12/23 22:23 08/12/23 22:24 08/12/23 22:24 Temperature Pulse Rate 105 H 105 H Respiratory Rate 19 Blood Pressure 140/63 Pulse Oximetry 95 99 Oxygen Delivery Method Room Air 08/12/23 22:30 08/12/23 22:30 08/12/23 23:00 Temperature Pulse Rate 106 H 107 H Respiratory Rate 21 22 Blood Pressure 152/69 H Pulse Oximetry 98 Oxygen Delivery Method Room Air 08/12/23 23:00 08/12/23 23:30 08/12/23 23:30 Temperature Pulse Rate 102 H Respiratory Rate 21 Blood Pressure 149/64 H 140/63 Pulse Oximetry 99 Oxygen Delivery Method Room Air 08/13/23 00:00 08/13/23 00:00 08/13/23 00:30 Temperature Pulse Rate 104 H 104 H Respiratory Rate 23 17 Blood Pressure 142/66 H 141/72 H Pulse Oximetry 98 98 Oxygen Delivery Method Room Air Room Air 08/13/23 00:30 08/13/23 01:00 Temperature Pulse Rate 107 H Respiratory Rate 20 Blood Pressure 141/72 H 132/63 Pulse Oximetry Oxygen Delivery Method Medical Decision Making <Lianna Henriquez MD - Last Filed: 08/17/23 07:35> Lab Data 08/12/23 15:00 08/12/23 15:00 Labs: Lab Results 08/12/23 08/12/23 08/12/23 Range/Units 13:00 14:10 15:00 WBC 28.7 H (4.5-11.0) X10^3/uL RBC 4.43 (4.0-5.2) X10^6/uL Hgb 11.4 L (12.0-16.0) g/dL Hct 35.4 L (36-46) % MCV 79.9 L (80-100) fL MCH 25.6 L (26-34) PG MCHC 32.1 (30-36) % RDW 14.0 (11.6-14.8) % Plt Count 643 H (150-400) X10^3/uL Neut % (Auto) Not Reportable Lymph % (Auto) Not Reportable [place] % (Auto) Not Reportable Eos % (Auto) Not Reportable Baso % (Auto) Not Reportable Lymph # (Auto) Not Reportable [place] # (Auto) Not Reportable Baso # (Auto) Not Reportable Total Counted 100 Seg Neutrophils % 90.0 H (38-70) % Band Neutrophils % 1.0 L (3-7) % Lymphocytes % (Manual) 8.0 L (25-45) % Monocytes % (Manual) 1.0 L (2-11) % Neutrophils # (Manual) 73636 H (7332-5069) /uL Toxic Granulation Present H RBC Morphology Normal morphology Sodium 134 L (137-145) mmol/L Potassium 4.5 (3.4-5.1) mmol/L Chloride 103 (98-107) mmol/L Carbon Dioxide 19 L (22-32) mmol/L BUN 18 H (7-17) mg/dL Creatinine 0.66 (0.52-1.04) mg/dL Estimated GFR > 60 (>60) mL/min BUN/Creatinine Ratio 27.3 H (6-22) Glucose 134 H (80-110) mg/dL Lactate 1.9 (0.7-2.1) mmol/L Calcium 9.7 (8.4-10.2) mg/dL Total Bilirubin 1.0 (0.2-1.3) mg/dL AST 15 (14-36) IU/L ALT 10 (<35) IU/L Alkaline Phosphatase 128 H (38-126) U/L Total Protein 7.9 (6.3-8.2) g/dL Albumin 4.1 (3.5-5.0) g/dL Globulin 3.8 (1.7-4.1) g/dL Albumin/Globulin Ratio 1.1 (1.0-2.8) Lipase < 10 L (23-300) U/L Procalcitonin 0.14 (<0.5) ng/mL Urine Color TNP Urine Appearance TNP Urine pH TNP Ur Specific [place] TNP Urine Protein TNP Urine Glucose (UA) TNP Urine Ketones TNP Urine Occult Blood TNP Urine Nitrate TNP Urine Bilirubin TNP Urine Urobilinogen TNP Ur Leukocyte Esterase TNP Urine RBC TNP Urine WBC TNP Ur Squamous Epith Cells TNP Urine Bacteria TNP Ur Culture Indicated? Cult not indicated Vol Urine Centrifuged TNP MDM Narrative Medical decision making narrative: CC: Stool coming out in my urine Complicating co-morbidities: Patient describes irritable bowel syndrome, history of colitis, she presents complaining of colovesical fistula but I see no documentation of findings or prior complaints in the medical record. Severe left hip arthritis Data collected from: patient Medical records reviewed: Multiple family practice visits with her fibromyalgia, hip pain, trigger point injections, abdominal bloating, shingles but no mentioned her documentation of colovaginal abnormalities Differential considered: Patient is in fact voiding stool and clearly does have a colovaginal fistula, sepsis, intra-abdominal abscess, diverticulitis, neoplasm Exam documented above, pertinent findings include: Patient is able to completely and in detail describe details of her life and extended medical history she is difficult to refocus to understand why she is actually here today. Abdomen is mildly tender, external vaginal exam is unremarkable at this time however nursing does report that there was only stool essentially coming out with voiding and they have done a excellent job of cleaning her perineum before my evaluation. Lab Test results independently reviewed as above. Pertinent findings: White count significantly elevated at 28.7, H&H of 11.4 and 35.4, platelet count 463, 90% neutrophils with toxic granulation and bands appreciated CBC shows slightly low carbon dioxide, creatinine is appropriate at 0.66 Lactate is not elevated, it is 1.9 Independently reviewed EKG: Sinus tach at a rate of 110 with nonspecific STT wave changes Imaging studies independently reviewed: MRI done at [facility] on June 18 of this year shows 3 cm cyst in the anterior pelvis that may represent an ovarian cyst or mesenteric duplication cyst that was incidentally appreciated on this exam. Prominent stool in the cecum with borderline cecal wall thickening stercoral colitis could do this. Severe DJD of the right hip. Left hip with chronic appearing left femoral head collapse and remodeling small left hip effusion We did try to obtain a urine sample however it was entirely stool, urine sample was canceled Consultations: Treatments: Fluids, cefepime is started. Re-evaluations: CT scan of the abdomen and pelvis is ordered. Patient will be turned over to caustic cresylate shift superintendent physician Discussion: <aTmar Maya MD - Last Filed: 08/13/23 01:22> Lab Data Labs: Lab Results 08/12/23 08/12/23 08/12/23 Range/Units 13:00 14:10 15:00 WBC 28.7 H (4.5-11.0) X10^3/uL RBC 4.43 (4.0-5.2) X10^6/uL Hgb 11.4 L (12.0-16.0) g/dL Hct 35.4 L (36-46) % MCV 79.9 L (80-100) fL MCH 25.6 L (26-34) PG MCHC 32.1 (30-36) % RDW 14.0 (11.6-14.8) % Plt Count 643 H (150-400) X10^3/uL Neut % (Auto) Not Reportable Lymph % (Auto) Not Reportable [place] % (Auto) Not Reportable Eos % (Auto) Not Reportable Baso % (Auto) Not Reportable Lymph # (Auto) Not Reportable [place] # (Auto) Not Reportable Baso # (Auto) Not Reportable Total Counted 100 Seg Neutrophils % 90.0 H (38-70) % Band Neutrophils % 1.0 L (3-7) % Lymphocytes % (Manual) 8.0 L (25-45) % Monocytes % (Manual) 1.0 L (2-11) % Neutrophils # (Manual) 96881 H (0070-1175) /uL Toxic Granulation Present H RBC Morphology Normal morphology Sodium 134 L (137-145) mmol/L Potassium 4.5 (3.4-5.1) mmol/L Chloride 103 (98-107) mmol/L Carbon Dioxide 19 L (22-32) mmol/L BUN 18 H (7-17) mg/dL Creatinine 0.66 (0.52-1.04) mg/dL Estimated GFR > 60 (>60) mL/min BUN/Creatinine Ratio 27.3 H (6-22) Glucose 134 H (80-110) mg/dL Lactate 1.9 (0.7-2.1) mmol/L Calcium 9.7 (8.4-10.2) mg/dL Total Bilirubin 1.0 (0.2-1.3) mg/dL AST 15 (14-36) IU/L ALT 10 (<35) IU/L Alkaline Phosphatase 128 H (38-126) U/L Total Protein 7.9 (6.3-8.2) g/dL Albumin 4.1 (3.5-5.0) g/dL Globulin 3.8 (1.7-4.1) g/dL Albumin/Globulin Ratio 1.1 (1.0-2.8) Lipase < 10 L (23-300) U/L Procalcitonin 0.14 (<0.5) ng/mL Urine Color TNP Urine Appearance TNP Urine pH TNP Ur Specific [place] TNP Urine Protein TNP Urine Glucose (UA) TNP Urine Ketones TNP Urine Occult Blood TNP Urine Nitrate TNP Urine Bilirubin TNP Urine Urobilinogen TNP Ur Leukocyte Esterase TNP Urine RBC TNP Urine WBC TNP Ur Squamous Epith Cells TNP Urine Bacteria TNP Ur Culture Indicated? Cult not indicated Vol Urine Centrifuged TNP MDM Narrative Medical decision making narrative: CC: Stool coming out in my urine Complicating co-morbidities: Patient describes irritable bowel syndrome, history of colitis, she presents complaining of colovesical fistula but I see no documentation of findings or prior complaints in the medical record. Severe left hip arthritis Data collected from: patient Medical records reviewed: Multiple family practice visits with her fibromyalgia, hip pain, trigger point injections, abdominal bloating, shingles but no mentioned her documentation of colovaginal abnormalities Differential considered: Patient is in fact voiding stool and clearly does have a colovaginal fistula, sepsis, intra-abdominal abscess, diverticulitis, neoplasm Exam documented above, pertinent findings include: Patient is able to completely and in detail describe details of her life and extended medical history she is difficult to refocus to understand why she is actually here today. Abdomen is mildly tender, external vaginal exam is unremarkable at this time however nursing does report that there was only stool essentially coming out with voiding and they have done a excellent job of cleaning her perineum before my evaluation. Lab Test results independently reviewed as above. Pertinent findings: White count significantly elevated at 28.7, H&H of 11.4 and 35.4, platelet count 463, 90% neutrophils with toxic granulation and bands appreciated CBC shows slightly low carbon dioxide, creatinine is appropriate at 0.66 Lactate is not elevated, it is 1.9 Independently reviewed EKG: Sinus tach at a rate of 110 with nonspecific STT wave changes Imaging studies independently reviewed: MRI done at [facility] on June 18 of this year shows 3 cm cyst in the anterior pelvis that may represent an ovarian cyst or mesenteric duplication cyst that was incidentally appreciated on this exam. Prominent stool in the cecum with borderline cecal wall thickening stercoral colitis could do this. Severe DJD of the right hip. Left hip with chronic appearing left femoral head collapse and remodeling small left hip effusion We did try to obtain a urine sample however it was entirely stool, urine sample was canceled Consultations: Treatments: Fluids, cefepime is started. Re-evaluations: CT scan of the abdomen and pelvis is ordered. Patient will be turned over to caustic cresylate shift superintendent physician Discussion: Francesco - Care of patient signed to me by Dr. Henriquez at 1800. Labs reviewed, chart reviewed. Pending CT imaging. CT imaging shows colovesicular fistula with very large sigmoid stool ball. Patient resting comfortably in bed, has not required any pain medications, no acute events. Case discussed with Dr. Marshall of General surgery, who reviewed images and stated that due to significant bladder involvement would recommend transfer for higher level of care. Dr. Reynolds of general surgery at [facility] reviewed images, accepted case. 0115 - patient transported via [place] ambulance service in stable condition. Discharge Plan Departure Patient Disposition: [facility] Clinical Impression: Colovesical fistula, Leukocytosis Prescriptions: No Action zinc gluconate 50 mg tablet 50 mg PO DAILY cholecalciferol (vitamin D3) 250 mcg (10,000 unit) capsule 500 mcg PO DAILY Rx Instructions: 20,000 to 30,000 daily mecobalamin (vitamin B12) 1,000 mcg tablet,chewable 500 mcg PO BID diclofenac sodium 1 % gel 2 g Topical BIDP PRN (Reason: pain) Qty: 100 1RF ferrous gluconate 324 mg (38 mg iron) tablet 324 mg PO BID epinephrine 0.3 mg/0.3 mL auto-injector 0.3 mg IM ONCE Rx Instructions: as a single dose; may repeat once pseudoephedrine HCl [Sudafed 12 Hour] 120 mg tablet extended release 60 mg PO Q12H diphenhydramine HCl [Allergy (diphenhydramine)] 25 mg capsule 25 mg PO DAILY PRN (Reason: allergic reaction) dicyclomine 20 mg tablet See Rx Instructions .ROUTE .COMPLEX Qty: 90 2RF Dose Instruction: TAKE 1 TABLET BY MOUTH EVERY DAY Rx Instructions: TAKE 1 TABLET BY MOUTH EVERY DAY hbwfbxtgjx-jmrpikkktlawu-hize 50-325-40 mg tablet See Rx Instructions .ROUTE .COMPLEX Qty: 30 0RF Dose Instruction: TAKE ONE TABLET BY MOUTH EVERY 6 HOURS NEEDED FOR HEADACHE (DO NOT SUB- WHITE TABLETS ONLY) Rx Instructions: TAKE ONE TABLET BY MOUTH EVERY 6 HOURS NEEDED FOR HEADACHE (DO NOT SUB- WHITE TABLETS ONLY) ketoconazole 2 % shampoo 1 applic topical 3XW Qty: 120 2RF indomethacin 25 mg capsule 25 mg PO 3XD Qty: 90 5RF methocarbamol 500 mg tablet See Rx Instructions .ROUTE .COMPLEX Qty: 30 2RF Dose Instruction: TAKE 1 TABLET BY MOUTH UP TO FOUR TIMES DAILY NEEDED FOR SPASMS [place] BRAND ONLY Rx Instructions: TAKE 1 TABLET BY MOUTH UP TO FOUR TIMES DAILY NEEDED FOR SPASMS [place] BRAND ONLY albuterol sulfate 90 mcg/actuation HFA aerosol inhaler 1 puff inhalation Q4-6H PRN (Reason: for wheezing) Qty: 18 5RF gabapentin 100 mg capsule See Rx Instructions PO BEDTIME Qty: 30 0RF Rx Instructions: 100-300mg orally bedtime; Take 1, 2, or 3 capsules at bedtime as needed for nerve pain alprazolam 0.25 mg tablet See Rx Instructions .ROUTE .COMPLEX Qty: 30 0RF Dose Instruction: TAKE 1 TABLET BY MOUTH ONCE DAILY NEEDED FOR ANXIETY ([place] ONLY)MUST LAST 30 DAYS. Rx Instructions: TAKE 1 TABLET BY MOUTH ONCE DAILY NEEDED FOR ANXIETY ([place] ONLY)MUST LAST 30 DAYS. diphenoxylate-atropine 2.5-0.025 mg tablet 1 tab PO Q6H PRN (Reason: diarrhea) Qty: 20 0RF lidocaine 4 % adhesive patch,medicated 1 patch topical .COMPLEX PRN (Reason: pain) Qty: 10 1RF Rx Instructions: 1 patch topically ONCE OR TWICE DAILY PRN; omeprazole 40 mg capsule,delayed release(DR/EC) 40 mg PO DAILY Qty: 90 1RF hydroxychloroquine 200 mg tablet 200 mg PO DAILY Referrals: Nithin Adkins MD [Primary Care Provider] -
[2023-08-12 17:03] LABS: Procalcitonin 0.14 ng/mL (<0.5)
--- NOTE | 2023-08-12 17:11 | DI.CT.S_ITS ---
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 Coronal and sagittal reformats were performed. For radiation dose reduction, the following was used: automated exposure control, adjustment of mA and/or kV according to patient size. COMPARISON: None. FINDINGS: Image quality: Diagnostic Lower chest: Scattered scarring and atelectasis at the lung bases. Coronary and annular calcifications of the heart. Mild nonspecific distal esophageal wall thickening and possible tiny hiatal hernia. Liver: Solid organs are not well evaluated in the absence of intravenous contrast. No contour deforming mass is seen. Gallbladder and biliary system: Unremarkable, nondilated Pancreas: No ductal dilation Spleen: Nonenlarged Adrenals: 1.6 cm left adrenal nodule with indeterminate attenuation. Kidneys: Nonobstructing small renal calculi. No hydronephrosis. Vessels and lymph nodes: Atherosclerotic calcifications are present. No abdominal aortic aneurysm. Bowel and peritoneum: Oral contrast is seen in loops of small bowel. The distal extent of the oral contrast is in the cecum. Large fecal ball in the distal sigmoid colon, with significant surrounding wall thickening. There is moderate surrounding edema. There is narrowing both proximally and distally. There is a fistula tract extending to the dome of the bladder (4/36). At the superior aspect, there is an intramural fluid collection measuring 2.7 cm. No pathologic ascites. Body wall: Tiny fat containing umbilical hernia Pelvis: There is gas in the bladder, which is under distended Bones: Degenerative changes. There is spinal curvature. IMPRESSION: Large sigmoid stool ball with significant surrounding edema and inflammatory changes. Narrowing is seen proximally and distally. Presumed fistula tract with fecal material and gas seen extending to the bladder dome. A focal intramural fluid collection measuring 2.7 cm is seen at the superior aspect of the sigmoid colon. Recommend GI follow-up and possible direct visualization. The distal extent of the ingested contrast is in the cecum. 1.6 cm left adrenal nodule may be an adenoma, consider adrenal protocol imaging for confirmation. Other findings as above. Dictated by: Rubén Connell M.D. on 08/12/2023 at 19:57 Approved by: Rubén Connell M.D. on 08/12/2023 at 20:03
[2023-08-12] MEDS: SODIUM CHLORIDE 0.9% 1,000 ML 1000 ML IV ×2 (18:07→23:49)
--- NOTE | 2023-08-12 18:38 | PC.NURSE ---
Pt reports urinating feces. Pt reports abd pain.
--- NOTE | 2023-08-12 20:22 | PC.NURSE ---
Patient sitting on the commde. This nurse attempted to take patient's vitals but patient declined. asked she will call when she is ready.
--- NOTE | 2023-08-12 21:26 | PC.NURSE ---
pt has a colovescial fistula and needs to be transferred to a higher level of care facility. [facility]: called at 2104 and spoke with Cesar. She said that they cannot accept the pt and have a 2+ day waitlist and are boarding in their ER. [facility]: called at 2107 and spoke with Reyes. She said they cannot accept and have a restricted waitlist with a 2+ day wait. [facility]: called at 2108 and spoke with Arthur. He said they have a waitlist and most likely will not have a bed overnight but the pt can be put on the wiatlist and still do a consult. I faxed them a facesheet and had any imaging pushed over to them to review for the consult. [facility]: called at 2116 and spoke with their data warehouse architect. She said that they might be able to have a bed available. I faxed over a facesheet and had any imaging pushed over to them to review.
[2023-08-13] VITALS: BP 142/66; PULSE 104; RESP 23; O2SAT 98
[2023-08-13 00:30] VITALS: BP 141/72; PULSE 104; RESP 17; O2SAT 98
[2023-08-13 01:00] VITALS: BP 132/63; PULSE 107; RESP 19; RESP 20; O2SAT 98
--- NOTE | 2023-08-13 02:05 | PC.NURSE ---
Called report to Miranda Grande at . Report given to Andrew WONG.
== END 2023-08-13 01:20 | disposition short-term general hospital (02) ==
PROVIDERS: Emergency Medicine; Emergency Provider Emergency Medicine; Family Provider Family Medicine; PCP Family Medicine
DX: N32.1 Vesicointestinal fistula (principal); D72.829 Elevated white blood cell count, unspecified
CPT/HCPCS: 74176; 80053; 81001; 83605; 83690; 84145; 85007; 85025; 93005; 99284; 99285

== ENCOUNTER → 2024-01-13 12:50 | Outpatient (CLI) | payer OTHER, SELFPAY ==
[2024-01-13 13:13] LABS: Add Manual Diff / Slide Review NO; Basophils Absolute Auto 0 /uL (0-100); Basophils Percent Auto 0.4 % (0-2); Eosinophils Absolute Auto 100 /uL (0-450); Eosinophils Percent Auto 0.6 % (2-4); Hematocrit 31.9 % (36-46); Hemoglobin 10.7 g/dL (12.0-16.0); Lymphocytes Absolute Auto 2000 /uL (1100-4500); Lymphocytes Percent Auto 21.5 % (25-40); Mean Corpuscular HGB Conc 33.7 % (30-36); Mean Corpuscular Hemoglobin 27.3 PG (26-34); Mean Corpuscular Volume 81.2 fL (80-100); Monocytes Absolute Auto 600 /uL (0-900); Monocytes Percent Auto 6.3 % (3-14); Neutrophils Absolute Auto 6700 /uL (1500-7000); Neutrophils Percent Auto 71.2 % (50-75); Platelet Count 402 X10^3/uL (150-400); Red Blood Cell Count 3.92 X10^6/uL (4.0-5.2); Red Cell Distribution Width 13.3 % (11.6-14.8); White Blood Cell Count 9.5 X10^3/uL (4.5-11.0)
[2024-01-13 13:34] LABS: HEMOLYSIS < 15 (0-50); Iron 26 ug/dL (37-170)
[2024-01-13 13:44] LABS: Alanine Aminotransferase 9 IU/L (<35); Albumin 3.9 g/dL (3.5-5.0); Albumin Globulin Ratio 1.2 (1.0-2.8); Alkaline Phosphatase 82 U/L (38-126); Aspartate Aminotransferase 16 IU/L (14-36); BUN Creatinine Ratio 25.6 (6-22); Bilirubin Total 0.6 mg/dL (0.2-1.3); Blood Urea Nitrogen 11 mg/dL (7-17); Calcium 9.8 mg/dL (8.4-10.2); Carbon Dioxide 22 mmol/L (22-32); Chloride 103 mmol/L (98-107); Estimated Glomerular Filt Rate > 60 mL/min (>60); Globulin 3.2 g/dL (1.7-4.1); Glucose 96 mg/dL (80-110); HEMOLYSIS < 15 (0-50); Magnesium 1.8 mg/dL (1.6-2.3); Sodium 133 mmol/L (137-145); Total Protein 7.1 g/dL (6.3-8.2)
[2024-01-13 13:48] LABS: Percent Iron Saturation 9 % (15-50); Total Iron Binding Capacity 282 ug/dL (265-497); Transferrin 217 mg/dL (206-381)
[2024-01-13 14:15] LABS: Ferritin 46 ng/mL (11-264)
== END ==
PROVIDERS: Family Provider Family Medicine; PCP Family Medicine; Referring Provider Physician Assistant; Visit Provider Physician Assistant
DX: D50.9 Iron deficiency anemia, unspecified (principal); R53.83 Other fatigue; R25.2 Cramp and spasm; M87.9 Osteonecrosis, unspecified
CPT/HCPCS: 36415; 80053; 82728; 83540; 83550; 83735; 85025

== ENCOUNTER → 2024-03-03 09:45 | Outpatient (CLI) | payer OTHER, SELFPAY ==
--- NOTE | 2024-03-03 09:46 | DI.RAD.S_ITS ---
PROCEDURE: XR DEXA AXIAL SKELETON INDICATIONS: BILATERAL PRIMARY OSTEOARTHRITIS OF HIP COMPARISON: [facility], , DEXA AXIAL SKELETON, 06/26/2016, 15:32. FINDINGS: Lumbar Spine: Bone mineral density 0.91 g/cm2, T score -1.2, previously -0.2. Left Hip: Bone mineral density is 0.34 g/cm2, T score -4.9, previously -2.7. Left Femoral Neck: Bone mineral density is 0.54 g/cm2, T score -2.8, previously -1.9. Right Hip: Bone mineral density is 0.51 g/cm2, T score -3.5, previously -1.2. Right Femoral Neck: Bone mineral density 0.54 g/cm2, T score -2.7, previously -1.8. Fracture Risk Calculation (when applicable): 10-year fracture risk of a major osteoporotic fracture 62 percent and of a hip fracture 52 percent. (T score greater or equal to -1.0 to: NORMAL) (T score from -1.1 to -2.4: OSTEOPENIA) (T score less than or equal to -2.5: OSTEOPOROSIS) IMPRESSION: Osteoporosis with markedly increased fracture risk. T-scores have significantly declined from prior imaging Follow-up guidelines as follows: Osteoporosis: Consider a repeat DEXA and Vertebral Fracture Assessment (VFA) exam in 2 years or sooner if medically necessary, to reassess this patient's status. Osteopenia: Consider a repeat DEXA in 2-3 years to reassess this patient's status, or if there is a new clinical indication. Normal: Consider a repeat DEXA in 5 years or sooner, or if there is a new clinical indication. All treatment decisions require clinical judgment and consideration of individual patient factors, including patient preferences, comorbidities, previous drug use, risk factors not captured in the FRAX model (e.g., frailty, falls, vitamin D deficiency, increased bone turnover, interval significant decline in bone density ) and possible under- or over-estimation of fracture risk by FRAX. In addition, the NOF Guide recommends that FDA-approved medical therapies be considered in postmenopausal women and men age >= 50 years with a: * Hip or vertebral (clinical or morphometric) fracture * T-score of <=-2.5 at the spine or hip * Ten-year fracture probability by FRAX of >= 3% for hip fracture or >=20% for major osteoporotic fracture. People with diagnosed cases of osteoporosis or at high risk for fracture should have regular bone mineral density tests. For patients eligible for Medicare, routine testing is allowed once every 2 years. The testing frequency can be increased to one year for patients who have rapidly progressing disease, those who are receiving or discontinuing medical therapy to restore bone mass, or have additional risk factors. Dictated by: Rubén Connell M.D. on 03/03/2024 at 14:03 Approved by: Rubén Connell M.D. on 03/03/2024 at 14:05
== END ==
PROVIDERS: Family Provider Family Medicine; PCP Family Medicine; Referring Provider Orthopaedic Surgery Adult Reconstructive Orthopaedic Surgery; Visit Provider Orthopaedic Surgery Adult Reconstructive Orthopaedic Surgery
DX: M85.89 Other specified disorders of bone density and structure, multiple sites (principal); M16.0 Bilateral primary osteoarthritis of hip; D50.9 Iron deficiency anemia, unspecified; M81.0 Age-related osteoporosis without current pathological fracture
CPT/HCPCS: 36415; 77080; 85025

== ENCOUNTER → 2024-03-03 12:39 | Outpatient (CLI) | payer OTHER, SELFPAY ==
[2024-03-03 14:07] LABS: Add Manual Diff / Slide Review NO; Basophils Absolute Auto 0 /uL (0-100); Basophils Percent Auto 0.6 % (0-2); Eosinophils Absolute Auto 100 /uL (0-450); Eosinophils Percent Auto 1.6 % (2-4); Hematocrit 36.8 % (36-46); Hemoglobin 12.2 g/dL (12.0-16.0); Lymphocytes Absolute Auto 2100 /uL (1100-4500); Lymphocytes Percent Auto 34.8 % (25-40); Mean Corpuscular HGB Conc 33.1 % (30-36); Mean Corpuscular Hemoglobin 26.7 PG (26-34); Mean Corpuscular Volume 80.6 fL (80-100); Monocytes Absolute Auto 400 /uL (0-900); Monocytes Percent Auto 6.3 % (3-14); Neutrophils Absolute Auto 3500 /uL (1500-7000); Neutrophils Percent Auto 56.7 % (50-75); Platelet Count 281 X10^3/uL (150-400); Red Blood Cell Count 4.56 X10^6/uL (4.0-5.2); Red Cell Distribution Width 15.9 % (11.6-14.8); White Blood Cell Count 6.1 X10^3/uL (4.5-11.0)
== END ==
PROVIDERS: Family Provider Family Medicine; PCP Family Medicine; Referring Provider Family Medicine; Visit Provider Family Medicine
DX: D50.9 Iron deficiency anemia, unspecified (principal)
CPT/HCPCS: 36415; 85025

== ENCOUNTER 2024-04-09 10:25 | Emergency (ER) | payer OTHER, SELFPAY ==
[2024-04-09] VITALS (16 sets, daily range): BP systolic 119–152; BP diastolic 57–88; PULSE 75–99; RESP 15–28; TEMP 36.7; O2SAT 92–98; BMI 24.3
--- NOTE | 2024-04-09 10:40 | DI.RAD.S_ITS ---
PROCEDURE: XR CHEST 1V INDICATIONS: Shortness of breath TECHNIQUE: One view of the chest was acquired. COMPARISON: Located [facility], CR, XR CHEST 2V, 01/19/2018, 14:46. FINDINGS: Surgical changes and devices: None. Lungs and pleura: An incomplete inspiratory result is noted, causing a crowded appearance to the lung markings. No focal infiltrates are seen. No pneumothorax or significant pleural effusions are seen. Mediastinum: The cardiac contours are within normal limits. The aorta demonstrates calcification and tortuosity. Bones and chest wall: No suspicious bony lesions. Degenerative changes are seen, particularly involving the shoulders. S-shaped scoliotic curvature is seen. Overlying soft tissues appear unremarkable. IMPRESSION: Portable chest within normal limits for age. Dictated by: Eduard Perea M.D. on 04/09/2024 at 10:25 Approved by: Eduard Perea M.D. on 04/09/2024 at 10:26
--- NOTE | 2024-04-09 10:40 | EKG_ITS ---
[address] [address] Test Date: 2024-04-09 Pat Name: Thuy Haq Department: [facility] Room: Gender: Female Behavioral Technician: JOHNNIE : 1945 Requested By: Order Number: [id number] Reading MD: Alexx Diaz Measurements Intervals [place] Rate: 96 P: 43 MD: 158 QRS: 51 QRSD: 84 T: 87 QT: 342 QTc: 432 Interpretive Statements Sinus rhythm with premature atrial complexes Electronically Signed On 04-11-2024 11:12:22 PST by Alexx Diaz
[2024-04-09 10:55] LABS: Add Manual Diff / Slide Review NO; Basophils Absolute Auto 100 /uL (0-100); Basophils Percent Auto 1.1 % (0-2); Eosinophils Absolute Auto 100 /uL (0-450); Eosinophils Percent Auto 1.8 % (2-4); Hematocrit 38.4 % (36-46); Hemoglobin 12.8 g/dL (12.0-16.0); Lymphocytes Absolute Auto 1600 /uL (1100-4500); Mean Corpuscular HGB Conc 33.3 % (30-36); Mean Corpuscular Hemoglobin 27.5 PG (26-34); Mean Corpuscular Volume 82.4 fL (80-100); Monocytes Absolute Auto 400 /uL (0-900); Monocytes Percent Auto 6.8 % (3-14); Neutrophils Absolute Auto 3500 /uL (1500-7000); Neutrophils Percent Auto 61.3 % (50-75); Platelet Count 275 X10^3/uL (150-400); Red Blood Cell Count 4.66 X10^6/uL (4.0-5.2); Red Cell Distribution Width 16.9 % (11.6-14.8); White Blood Cell Count 5.7 X10^3/uL (4.5-11.0)
--- NOTE | 2024-04-09 11:05 | ED_ITS ---
HPI - General Adult General Chief complaint: Shortness of Breath/Dyspnea Stated complaint: Left leg Pain, swelling in both legs now Time Seen by Provider: 04/09/24 10:36 Source: patient Mode of arrival: Wheelchair History of Present Illness HPI narrative: 78-year-old femal yet to be scheduled with history of fibromyalgia, chronic hip pain, awaiting left hip replacement surgery with Orthopedic surgery Dr. Rush. Most recently she was tried on gabapentin for her leg pains, had developed swelling to both legs, possibly a side effect of the new medication, which has been discontinued, complains of bilateral leg pain. She has numerous pain medication intolerances, reporting stomach upset with ibuprofen, and also intolerance to hydrocodone and oxycodone and morphine. She has not sure if she has had tramadol before. She has not aware of having any blood clot issues, no history of abnormal clotting, no history of clots to legs or lungs in the past. No history of known heart failure, liver failure, kidney failure. Related Data Home Medications Medication Instructions Recorded Confirmed ferrous sulfate 325 mg (65 mg 325 mg PO BID 03/31/24 03/31/24 iron) tablet (Feosol) Previous Rx's Medication Instructions Recorded diclofenac sodium 1 % topical gel 2 g topical BIDP PRN pain #100 05/21/22 grams dicyclomine 20 mg tablet See Rx Instructions .Route 09/10/22 .COMPLEX #90 tabs methocarbamol 500 mg tablet See Rx Instructions .Route 04/03/23 .COMPLEX #30 tabs omeprazole 40 mg capsule,delayed 40 mg PO DAILY #90 caps 07/27/23 release ondansetron 4 mg disintegrating 4 mg PO Q8H PRN nausea and 12/14/23 tablet vomiting #30 tabs tgyesdbtde-yolpuztyylhpd-zsygxnet 1 cap PO Q6H PRN pain #30 caps 01/06/24 50 mg-300 mg-40 mg capsule (Fioricet) alprazolam 0.25 mg tablet See Rx Instructions .Route 02/23/24 .COMPLEX #30 tabs diphenoxylate-atropine 2.5 1 tab PO Q6H PRN diarrhea #20 tabs 03/14/24 mg-0.025 mg tablet gabapentin 300 mg capsule 300 mg PO BID #60 caps 03/31/24 clindamycin HCl 300 mg capsule 300 mg PO Q6H Dental infection 7 04/09/24 days #28 caps tramadol 100 mg tablet 100 mg PO TID PRN pain #14 tabs 04/09/24 Allergies Allergy/AdvReac Type Severity Reaction Status Date / Time venom-honey bee Allergy Severe Anaphylaxis Verified 04/09/24 10:41 [BEE VENOM (HONEY BEE)] crab Allergy Intermediate SWELLING, Verified 04/09/24 10:41 RASH, HIVES amoxicillin [AMOXICILLIN] Allergy Mild RASH Verified 04/09/24 10:41 codeine [CODEINE] Allergy Mild Verified 04/09/24 10:41 doxycycline [DOXYCYCLINE] Allergy Unknown Verified 04/09/24 10:41 petrolatum,white AdvReac Mild FAINT FROM Verified 04/09/24 10:41 [From PETROLEUM JELLY] FUMES hydrocodone [From VICODIN] AdvReac Unknown N/V Verified 04/09/24 10:41 morphine [MORPHINE] AdvReac Unknown N/V Verified 04/09/24 10:41 Patient History Medical History (Updated 04/09/24 @ 15:33 by Fan Nuno MD) Dysuria Spinal stenosis of lumbar region CTS (carpal tunnel syndrome) Left rotator cuff tear Breast pain, right Gynecomastia, female Chronic sinusitis Fibromyalgia GERD (gastroesophageal reflux disease) IBS (irritable bowel syndrome) Asthma Sleep apnea Diverticular disease Degeneration of intervertebral disc of cervical region (05/25/13) Surgical History (Updated 09/23/22 @ 15:24 by Ca Mitchell) Deviated septum History of knee surgery Social History (System 09/23/22 @ 15:24 by Ca Mitchell) marital status: Smoking Status: Never smoker alcohol intake: never Smoking Status: Never smoker Exam Narrative Exam Narrative: GENERAL: Well-developed patient, in mild distress. HEAD: Atraumatic. Normocephalic. EYES: Pupils equal round and reactive. Extraocular motions intact. No scleral icterus. No injection or drainage. ENT: Nose without bleeding, purulent drainage. Throat without erythema, tonsillar hypertrophy or exudate. Airway patent. NECK: Trachea midline. Non tender CARDIOVASCULAR: Regular rate and rhythm, 2/6 murmur left upper sternal border, patient informed about audible murmur, new information to her RESPIRATORY: Clear to auscultation. Breath sounds equal bilaterally. No wheezes, rales, or rhonchi. GASTROINTESTINAL: Abdomen soft, non-tender, nondistended. EXTREMITIES: Slight warmth without ulceration to bilateral lower extremity, ankles and above BACK: Nontender without deformity or crepitance. No flank tenderness. NEURO: AOx3. Motor functions grossly nonfocal SKIN: No rash or erythema of visible areas Initial Vital Signs Initial Vital Signs: Vital Signs Temperature 98.1 F 04/09/24 10:26 Pulse Rate 95 H 04/09/24 10:26 Respiratory Rate 15 04/09/24 10:26 Blood Pressure 152/71 H 04/09/24 10:26 Pulse Oximetry 95 04/09/24 10:26 Oxygen Delivery Method Room Air 04/09/24 10:26 Course Orders Ordered: ED Orders 04/09/24 11:57 US periph venous low extrem bi Stat 04/09/24 14:43 Consult to [employer] TEACHER - Supervisory Training Specialist Stat 04/09/24 15:23 Consult to Home Health Stat Discontinued Medications Clindamycin HCl (Clindamycin 150 Mg Capsule) 300 mg PO NOW ONE Stop: 04/09/24 15:22 Last Admin: 04/09/24 15:31 Dose: 300 mg Documented By: VANESSA Ketorolac Tromethamine (Ketorolac 30 Mg/Ml Vial) 15 mg IV NOW ONE Stop: 04/09/24 15:23 Last Admin: 04/09/24 15:30 Dose: 15 mg Documented By: VANESSA Tramadol HCl (Tramadol 50 Mg Tablet) 100 mg PO NOW ONE Stop: 04/09/24 11:45 Last Admin: 04/09/24 11:52 Dose: 100 mg Documented By: KHADAR Vital Signs Vital signs: Vital Signs - 8 hr 04/09/24 12:24 04/09/24 12:24 04/09/24 12:30 Pulse Rate 85 Respiratory Rate 17 Blood Pressure 123/88 124/87 Pulse Oximetry 96 04/09/24 12:30 04/09/24 13:00 04/09/24 13:00 Pulse Rate 84 88 Respiratory Rate 21 17 Blood Pressure 139/65 Pulse Oximetry 95 95 04/09/24 13:30 04/09/24 13:30 04/09/24 14:00 Pulse Rate 79 75 Respiratory Rate 28 H 17 Blood Pressure 138/60 Pulse Oximetry 97 04/09/24 14:00 04/09/24 14:19 04/09/24 14:19 Pulse Rate 91 H Respiratory Rate 17 Blood Pressure 120/57 L 130/60 Pulse Oximetry 95 04/09/24 14:20 04/09/24 14:20 04/09/24 14:30 Pulse Rate 90 Respiratory Rate 24 Blood Pressure 139/70 123/59 L Pulse Oximetry 97 04/09/24 14:30 04/09/24 15:00 04/09/24 15:00 Pulse Rate 79 77 Respiratory Rate 16 23 Blood Pressure 119/58 L Pulse Oximetry 97 98 04/09/24 15:30 04/09/24 15:30 Pulse Rate 79 Respiratory Rate 22 Blood Pressure 133/60 Pulse Oximetry 96 Medical Decision Making Lab Data Lab results reviewed: Yes I reviewed the patient's lab results. Lab results narrative: White blood cell count 5700, hemoglobin 12.8, platelets adequate. Basic metabolic panel negative. Liver functions unremarkable. Lactate 0.9 normal. BNP and troponin results pending 04/09/24 10:42 04/09/24 10:42 Labs: Lab Results 04/09/24 Range/Units 10:42 WBC 5.7 (4.5-11.0) X10^3/uL RBC 4.66 (4.0-5.2) X10^6/uL Hgb 12.8 (12.0-16.0) g/dL Hct 38.4 (36-46) % MCV 82.4 (80-100) fL MCH 27.5 (26-34) PG MCHC 33.3 (30-36) % RDW 16.9 H (11.6-14.8) % Plt Count 275 (150-400) X10^3/uL Neut % (Auto) 61.3 (50-75) % Lymph % (Auto) 29.0 (25-40) % [place] % (Auto) 6.8 (3-14) % Eos % (Auto) 1.8 L (2-4) % Baso % (Auto) 1.1 (0-2) % Neut # (Auto) 3500 (8922-8329) /uL Lymph # (Auto) 1600 (6329-3011) /uL [place] # (Auto) 400 (0-900) /uL Eos # (Auto) 100 (0-450) /uL Baso # (Auto) 100 (0-100) /uL PT 11.7 (9.4-12.5) SECONDS INR 1.0 (0.9-1.3) Sodium 137 (137-145) mmol/L Potassium 3.8 (3.4-5.1) mmol/L Chloride 107 (98-107) mmol/L Carbon Dioxide 22 (22-32) mmol/L BUN 13 (7-17) mg/dL Creatinine 0.40 L (0.52-1.04) mg/dL Estimated GFR > 60 (>60) mL/min BUN/Creatinine Ratio 32.5 H (6-22) Glucose 97 (80-110) mg/dL Lactate 0.9 (0.7-2.1) mmol/L Calcium 9.2 (8.4-10.2) mg/dL Total Bilirubin 0.6 (0.2-1.3) mg/dL AST 25 (14-36) IU/L ALT 16 (<35) IU/L Alkaline Phosphatase 86 (38-126) U/L Troponin I < 0.012 (0.01-0.034) ng/mL NT-Pro-B Natriuret Pep 619 H (<450) pg/mL Total Protein 7.5 (6.3-8.2) g/dL Albumin 4.3 (3.5-5.0) g/dL Globulin 3.2 (1.7-4.1) g/dL Albumin/Globulin Ratio 1.3 (1.0-2.8) Imaging Data Chest x-ray: Radiologist's Impression: [address] [address] XRay Report Signed Patient: Thuy Haq V MR#: [id number] : 1945 Acct:[id number] Age/Sex: 78 / F Date of Service: 04/09/24 Loc: ED Accession Number: [id number] Procedure: XR chest 1V Ordering Provider: Fan Nuno MD PROCEDURE: XR CHEST 1V INDICATIONS: Shortness of breath TECHNIQUE: One view of the chest was acquired. COMPARISON: [facility], , XR CHEST 2V, 01/19/2018, 14:46. FINDINGS: Surgical changes and devices: None. Lungs and pleura: An incomplete inspiratory result is noted, causing a crowded appearance to the lung markings. No focal infiltrates are seen. No pneumothorax or significant pleural effusions are seen. Mediastinum: The cardiac contours are within normal limits. The aorta demonstrates calcification and tortuosity. Bones and chest wall: No suspicious bony lesions. Degenerative changes are seen, particularly involving the shoulders. S-shaped scoliotic curvature is seen. Overlying soft tissues appear unremarkable. IMPRESSION: Portable chest within normal limits for age. Dictated by: Eduard Perea M.D. on 04/09/2024 at 10:25 Approved by: Eduard Perea M.D. on 04/09/2024 at 10:26 Ultrasound venous Doppler bilateral lower extremities: Radiologist's Impression: Close Vascular Ultrasound (Signed) Eduard Perea - 04/09/24 Chest X-Ray (Signed) Eduard Perea - 04/09/24 [place] [address] Ultrasound Report Signed Patient: Thuy Haq V MR#: [id number] : 1945 Acct:[id number] Age/Sex: 78 / F Date of Service: 04/09/24 Loc: ED Accession Number: [id number] Procedure: US periph venous low extrem bi Ordering Provider: Fan Nuno MD PROCEDURE: US PERIPH VENOUS LOW EXTREM BI INDICATIONS: BLE swelling TECHNIQUE: Real-time imaging, as well as color and pulse Doppler interrogation, were performed of the deep veins of both legs from the inguinal ligament to the popliteal fossa, with documentation of the visualized calf veins. COMPARISON: None. FINDINGS: Right: The common femoral, femoral, popliteal, and the visualized calf veins are normally compressible, and free of intraluminal thrombus. Color and pulse Doppler demonstrate normal phasic intravascular flow. There is normal augmentation response to distal compression maneuver. Left: The common femoral, femoral, popliteal, and the visualized calf veins are normally compressible, and free of intraluminal thrombus. Color and pulse Doppler demonstrate normal phasic intravascular flow. There is normal augmentation response to distal compression maneuver. This study is limited by soft tissue swelling. A right-sided Salinas's cyst is seen that measures 3.6 x 1.6 x 1.5 cm. IMPRESSION: Limited study demonstrating no findings of deep venous thrombosis. Note: Concordant preliminary findings given by the director process improvement upon the completion of the examination to Dr. Nuno. Dictated by: Eduard Perea M.D. on 04/09/2024 at 12:48 Approved by: Eduard Perea M.D. on 04/09/2024 at 12:49 ECG Data Attestation: I personally reviewed and interpreted this ECG as follows: Interpretation: 1057, normal sinus rhythm with ventricular rate 96, PACs noted, no obvious ST segment elevation or depression changes. MT 158, QRS 84, QTC 432. MDM Narrative Medical decision making narrative: 78-year-old female with fibromyalgia, intolerances to NSAIDs and various opiates, recent lower extremity edema possibly related to gabapentin which has been discontinued. Complaining of pain to both hips ongoing, awaiting elective hip replacement surgery left side 1st, then likely later right side, both to be scheduled. She is primarily concerned about her edema and pain control. Intolerance by history to morphine and hydrocodone and oxycodone, unclear if she has had problems with the tramadol, she would like to try tramadol when offered. Oral tramadol dose for now. Labs pending, including EKG and chest x- ray and BNP. Renal function unremarkable, BNP not particularly elevated, chest x-ray not suggestive of fluid overload Bilateral ultrasound venous studies, no blood clots noted, limited study noted. See radiology report. Some improvement with tramadol, now requests IV Toradol, IV Toradol 50 mg ordered Case discussed with social and political studies professor, who interviewed patient, likely would benefit from home health referral, ordered. Consider cellulitis, suspect this is more likely venous stasis or perhaps a reaction to her gabapentin medication which was recently discontinued, which hopefully will further improved. History of amoxicillin allergy, we will avoid 1st generation cephalosporin for now, give oral clindamycin 1st dose now. We will give prescription for further clindamycin. Patient was able to ambulate, home with friends. Follow-up with PCP advised early next week, return precautions discussed. Discharge Plan Departure Patient Disposition: Home Clinical Impression: Bilateral leg pain, Cellulitis, Bilateral leg edema, Heart murmur Activity Restrictions/Additional Instructions: History of arthritis, fibromyalgia, chronic pain, numerous medication intolerances. Most recently tried gabapentin, possible side effect of swelling of the legs, this medication has been discontinued. Ultrasound venous Doppler of both legs showed no evidence for clots, limited study however noted. It is possible you might have cellulitis as a cause of your swelling, although it might be a medication effect from your recently discontinue gabapentin. No obvious heart failure, kidney failure, liver failure. We will give oral antibiotic clindamycin for now in case of cellulitis cause of the leg swelling, further antibiotic clindamycin sent to your pharmacy. You tolerated tramadol medication for pain control, further dose sent to your pharmacy. Recheck advised with your regular doctor early next week. Return earlier to this/nearest emergency department for any change worsening symptoms or any concerns prior Heart murmur incidentally noted on examination, this can be followed up further as an outpatient with your regular doctor Prescriptions: New clindamycin HCl 300 mg capsule 300 mg PO Q6H 7 Days Qty: 28 0RF tramadol 100 mg tablet 100 mg PO TID PRN (Reason: pain) Qty: 14 0RF No Action diclofenac sodium 1 % gel 2 g Topical BIDP PRN (Reason: pain) Qty: 100 1RF dicyclomine 20 mg tablet See Rx Instructions .ROUTE .COMPLEX Qty: 90 2RF Dose Instruction: TAKE 1 TABLET BY MOUTH EVERY DAY Rx Instructions: TAKE 1 TABLET BY MOUTH EVERY DAY methocarbamol 500 mg tablet See Rx Instructions .ROUTE .COMPLEX Qty: 30 2RF Dose Instruction: TAKE 1 TABLET BY MOUTH UP TO FOUR TIMES DAILY NEEDED FOR SPASMS [place] [facility] ONLY Rx Instructions: TAKE 1 TABLET BY MOUTH UP TO FOUR TIMES DAILY NEEDED FOR SPASMS [place] [facility] ONLY ondansetron 4 mg tablet,disintegrating 4 mg PO Q8H PRN (Reason: nausea and vomiting) Qty: 30 0RF amjcwibopc-bwxfndpltfxsv-gjpv [Fioricet] 50-300-40 mg capsule 1 cap PO Q6H PRN (Reason: pain) Qty: 30 0RF Rx Instructions: I called this medication into Vel the pharmacist at [facility]-he will insure that they are the white tablets alprazolam 0.25 mg tablet See Rx Instructions .ROUTE .COMPLEX Qty: 30 0RF Dose Instruction: TAKE 1 TABLET BY MOUTH ONCE DAILY NEEDED FOR ANXIETY ([place] ONLY)MUST LAST 30 DAYS. Rx Instructions: TAKE 1 TABLET BY MOUTH ONCE DAILY NEEDED FOR ANXIETY ([place] ONLY)MUST LAST 30 DAYS. diphenoxylate-atropine 2.5-0.025 mg tablet 1 tab PO Q6H PRN (Reason: diarrhea) Qty: 20 0RF omeprazole 40 mg capsule,delayed release(DR/EC) 40 mg PO DAILY Qty: 90 1RF ferrous sulfate [Feosol] 325 mg (65 mg iron) tablet 325 mg PO BID gabapentin 300 mg capsule 300 mg PO BID Qty: 60 3RF Referrals: Nithin Adkins MD [Primary Care Provider] - Stand Alone Forms: Patient Portal/API/Survey
[2024-04-09 11:13] LABS: Prothrombin Time 11.7 SECONDS (9.4-12.5)
[2024-04-09 11:15] LABS: Lactate (Lactic Acid) 0.9 mmol/L (0.7-2.1)
[2024-04-09 11:16] LABS: Alanine Aminotransferase 16 IU/L (<35); Albumin 4.3 g/dL (3.5-5.0); Albumin Globulin Ratio 1.3 (1.0-2.8); Alkaline Phosphatase 86 U/L (38-126); Aspartate Aminotransferase 25 IU/L (14-36); BUN Creatinine Ratio 32.5 (6-22); Bilirubin Total 0.6 mg/dL (0.2-1.3); Blood Urea Nitrogen 13 mg/dL (7-17); Calcium 9.2 mg/dL (8.4-10.2); Carbon Dioxide 22 mmol/L (22-32); Chloride 107 mmol/L (98-107); Estimated Glomerular Filt Rate > 60 mL/min (>60); Globulin 3.2 g/dL (1.7-4.1); Glucose 97 mg/dL (80-110); HEMOLYSIS < 15 (0-50); Potassium 3.8 mmol/L (3.4-5.1); Sodium 137 mmol/L (137-145); Total Protein 7.5 g/dL (6.3-8.2)
[2024-04-09 11:28] LABS: NT-proBNP (BNP-Adult 18+) 619 pg/mL (<450); Troponin I < 0.012 ng/mL (0.01-0.034)
[2024-04-09] MEDS: TRAMADOL 50 MG TABLET 100 MG PO (11:52)
--- NOTE | 2024-04-09 11:57 | DI.US.S_ITS ---
PROCEDURE: US PERIPH VENOUS LOW EXTREM BI INDICATIONS: BLE swelling TECHNIQUE: Real-time imaging, as well as color and pulse Doppler interrogation, were performed of the deep veins of both legs from the inguinal ligament to the popliteal fossa, with documentation of the visualized calf veins. COMPARISON: None. FINDINGS: Right: The common femoral, femoral, popliteal, and the visualized calf veins are normally compressible, and free of intraluminal thrombus. Color and pulse Doppler demonstrate normal phasic intravascular flow. There is normal augmentation response to distal compression maneuver. Left: The common femoral, femoral, popliteal, and the visualized calf veins are normally compressible, and free of intraluminal thrombus. Color and pulse Doppler demonstrate normal phasic intravascular flow. There is normal augmentation response to distal compression maneuver. This study is limited by soft tissue swelling. A right-sided Salinas's cyst is seen that measures 3.6 x 1.6 x 1.5 cm. IMPRESSION: Limited study demonstrating no findings of deep venous thrombosis. Note: Concordant preliminary findings given by the cementer helper upon the completion of the examination to Dr. Nuno. Dictated by: Eduard Perea M.D. on 04/09/2024 at 12:48 Approved by: Eduard Perea M.D. on 04/09/2024 at 12:49
[2024-04-09] MEDS: KETOROLAC 30 MG/ML VIAL 15 MG IV (15:30)
[2024-04-09] MEDS: CLINDAMYCIN 150 MG CAPSULE 300 MG PO (15:31)
--- NOTE | 2024-04-09 15:36 | CM.SWNOTE ---
ED ENGINEERING PROGRAMMER Note ENGINEERING PROGRAMMER receives referral due to concern for patient's difficulty ambulating. Patient is 78 y/o female who presents to the ED via POV due to concern for leg pain and bilateral leg swelling. It is reported that patient has upcoming Ortho consult with Dr. Rush regarding hip replacement surgery on 04/14. Patient's PCP is Dr. Adkins, Patient has [facility] insurance. It is reported that patient sees Neurologist Dr. Epperson as well. Patient has hx of bilateral leg edema, cellulitis, bilateral leg pain, heart murmur, Anxiety, hx knee surgery. Patient has hx of [facility] services, going to [facility] in October 2023 and August 2023. ENGINEERING PROGRAMMER enters room to meet with patient, present in room is patient's niece Janessa. Patient presents as A/Ox4. Patient endorses that she is comfortable discharging to home upon medical clearance. Patient states that she believes her Neurologist submitted an [facility] referral but she is waiting on insurance auth, patient states she has upcoming Ortho consult next week. Patient endorses she is typically independent with ADLs at baseline, uses FWW at baseline, has canes and wheelchair as well. Patient states she resides in [place] and patient's nephew resides with her as well, patient's niece visits regularly and assists patient as needed as well. Patient states that she has not been driving in recent months, and in recent days she has been experiencing increase in leg pain. Patietn endorses she receives meals on wheels, can cook, ambulate to the bathroom and accommodate bathing self. ENGINEERING PROGRAMMER calls [facility] with patient consent and leaves regarding referral, ENGINEERING PROGRAMMER is not able to reach anyone due to the weekend. ENGINEERING PROGRAMMER submits new referral for [facility] for PT, OT, RN, and HH aide to ensure services are referred. ENGINEERING PROGRAMMER emails Mere at [facility] regarding referral as well, F2F is scanned in. ENGINEERING PROGRAMMER provides patient and niece with [facility] brochure, senior resource guide, caregiver resources and list of DME resources. Plan: patient to d/c to home with family upon medical clearance. [facility] to f/u with patient, patient to f/u with Ortho, patient and family to f/u with resources provided. BARBI CherySW
== END 2024-04-09 16:02 | disposition home or self-care (01) ==
PROVIDERS: Emergency Provider Emergency Medicine; Family Provider Family Medicine; PCP Family Medicine
DX: M79.605 Pain in left leg (principal); M79.604 Pain in right leg; R60.0 Localized edema; R01.1 Cardiac murmur, unspecified; L03.90 Cellulitis, unspecified
CPT/HCPCS: 36415; 71045; 80053; 83605; 83880; 84484; 85025; 85610; 93005; 93970; 96374; 99284; J1885

== ENCOUNTER → 2024-10-20 10:19 | Outpatient (CLI) | payer OTHER, SELFPAY ==
[2024-10-20 10:47] LABS: Add Manual Diff / Slide Review NO; Hematocrit 39.2 % (36-46); Hemoglobin 13.4 g/dL (12.0-16.0); Lymphocytes Absolute Auto 1600 /uL (1100-4500); Mean Corpuscular HGB Conc 34.1 % (30-36); Mean Corpuscular Hemoglobin 29.8 PG (26-34); Mean Corpuscular Volume 87.3 fL (80-100); Platelet Count 233 X10^3/uL (150-400)
[2024-10-20 11:17] LABS: Blood Urea Nitrogen 11 mg/dL (7-17); Calcium 9.6 mg/dL (8.4-10.2); Carbon Dioxide 26 mmol/L (22-32); Chloride 102 mmol/L (98-107); Estimated Glomerular Filt Rate > 60 mL/min (>60); Glucose 95 mg/dL (70-99); HEMOLYSIS < 15 (0-50); Potassium 4.4 mmol/L (3.4-5.1); Sodium 134 mmol/L (137-145)
[2024-10-20 14:40] LABS: MRSA (Nasal) PCR NOT DETECTED (Not Detect)
== END ==
PROVIDERS: Family Provider Family Medicine; PCP Family Medicine; Referring Provider Family Medicine; Visit Provider Family Medicine
DX: Z01.810 Encounter for preprocedural cardiovascular examination (principal); M87.9 Osteonecrosis, unspecified
CPT/HCPCS: 36415; 80048; 85025; 87797

== ENCOUNTER → 2024-11-15 10:46 | Outpatient (CLI) | payer OTHER, SELFPAY ==
[2024-11-15 12:30] LABS: MRSA (Nasal) PCR NOT DETECTED (Not Detect)
== END ==
LOC: LAB 10:48
PROVIDERS: Family Provider Family Medicine; PCP Family Medicine; Visit Provider Family Medicine
DX: Z01.810 Encounter for preprocedural cardiovascular examination (principal); M87.9 Osteonecrosis, unspecified
CPT/HCPCS: 87797

== ENCOUNTER → 2024-11-15 11:04 | Outpatient (CLI) | payer OTHER, SELFPAY ==
[2024-11-15 12:16] LABS: Add Manual Diff / Slide Review NO; Hematocrit 37.5 % (36-46); Hemoglobin 13.2 g/dL (12.0-16.0); Lymphocytes Absolute Auto 1600 /uL (1100-4500); Mean Corpuscular HGB Conc 35.2 % (30-36); Mean Corpuscular Hemoglobin 30.4 PG (26-34); Mean Corpuscular Volume 86.5 fL (80-100); Platelet Count 241 X10^3/uL (150-400)
[2024-11-15 12:45] LABS: Blood Urea Nitrogen 16 mg/dL (7-17); Calcium 9.7 mg/dL (8.4-10.2); Carbon Dioxide 24 mmol/L (22-32); Chloride 103 mmol/L (98-107); Estimated Glomerular Filt Rate > 60 mL/min (>60); Glucose 87 mg/dL (70-99); HEMOLYSIS < 15 (0-50); Potassium 4.5 mmol/L (3.4-5.1); Sodium 135 mmol/L (137-145)
== END ==
PROVIDERS: Family Provider Family Medicine; PCP Family Medicine; Referring Provider Family Medicine; Visit Provider Family Medicine
DX: Z01.810 Encounter for preprocedural cardiovascular examination (principal); M87.9 Osteonecrosis, unspecified
CPT/HCPCS: 36415; 80048; 85025; 87797

== ENCOUNTER → 2025-01-17 11:42 | Outpatient (CLI) | payer OTHER, SELFPAY ==
--- NOTE | 2025-01-17 11:43 | DI.RAD.S_ITS ---
PROCEDURE: XR SHOULDER LT MIN 2V INDICATIONS: Pain L shoulder; suspect OA L shoulder TECHNIQUE: 3 views of the shoulder were acquired. COMPARISON: [facility], CR, XR SHOULDER LT MIN 2V, 06/26/2020, 14:25. FINDINGS: Bones: No fractures or dislocations. Severe glenohumeral joint degeneration. Moderate acromioclavicular joint degeneration. Mild widening of the AC joint, correlate with surgical history. Superior migration of the humeral head. No suspicious bony lesions. Visualized ribs appear intact. Soft tissues: No suspicious soft tissue calcifications. IMPRESSION: 1. Severe glenohumeral joint degeneration. 2. Superior migration of the humeral head consistent with rotator cuff pathology and/or muscle atrophy. If indicated MRI could be performed to further evaluate the soft tissues. Dictated by: Jabier Garcia M.D. on 01/17/2025 at 13:27 Approved by: Jabier Garcia M.D. on 01/17/2025 at 13:29
== END ==
PROVIDERS: Family Provider Family Medicine; PCP Family Medicine; Referring Provider Family Medicine; Visit Provider Physician Assistant
DX: M19.012 Primary osteoarthritis, left shoulder (principal); M25.512 Pain in left shoulder; G89.29 Other chronic pain
CPT/HCPCS: 73030

== ENCOUNTER 2025-02-01 16:07 | Emergency (ER) | payer OTHER, SELFPAY ==
[2025-02-01] VITALS (16 sets, daily range): BP systolic 109–177; BP diastolic 55–79; PULSE 78–98; RESP 16; TEMP 36.6; O2SAT 96–100; BMI 22.6
--- NOTE | 2025-02-01 18:27 | ED.SKABFB ---
HPI - Skin/Abscess/Foreign Bdy General Chief complaint: Skin/Abscess/Foreign Body Stated complaint: Abscess on abdomen Time Seen by Provider: 02/01/25 16:08 Source: patient and EMS Mode of arrival: EMS Limitations: no limitations History of Present Illness HPI narrative: 79-year-old female history of fibromyalgia, chronic hip pain, with a hip replacement in November patient has subsequently had fracture for tibia fibula during that replacement and also had surgical repair of this. Patient presents because she has not abscess on her thoracic back. Patient states that she had this about 7 years ago was told it was a clogged pore ultimately had incision and drainage minute improved. She states just she noticed a little bit of irritation in November after her surgery it has been growing in size. She has had home health care come and been told to be evaluated and have it drained twice. She states this is similar location. She states it is painful it is soft and fluctuant in his not had any drainage this time but had purulent drainage last time. She denies any fevers or chills. She states she has felt a little bit weak. She denies any new chest pain or shortness of breath. No nausea or vomiting. No new GI or urinary symptoms. She has had issues with transportation so has not presented before today. She is accompanied by a family friend. She states no anticoagulants currently used to be on aspirin postoperatively for DVT prophylaxis. She notes multiple medication allergies including antibiotics. Related Data Home Medications ?Medication ?Instructions ?Recorded ?Confirmed acetaminophen 500 mg tablet 1,000 mg PO Q8H PRN 01/17/25 01/17/25 aspirin 81 mg tablet 81 mg PO BID 01/17/25 01/17/25 cholecalciferol (vitamin D3) 25 50 mcg PO DAILY 01/17/25 01/17/25 mcg (1,000 unit) capsule cyanocobalamin (vitamin B-12) 500 1,000 mcg PO DAILY 01/17/25 01/17/25 mcg tablet dicyclomine 20 mg tablet 20 mg PO QID PRN ulcerative colitis 01/17/25 01/17/25 hydroxychloroquine 200 mg tablet 200 mg PO DAILY 01/17/25 01/17/25 lidocaine 4 % topical patch 2 patch topical DAILY PRN pain 01/17/25 01/17/25 potassium chloride 20 mEq 20 meq PO BID 01/17/25 01/17/25 tablet,extended release propylene glycol 1 %-glycerin 0.3 2 drp EYE-BOTH TID PRN dry eyes 01/17/25 01/17/25 % eye drops (Lubricant (propylene glycol-glycerin)) Previous Rx's ?Medication ?Instructions ?Recorded diphenoxylate-atropine 2.5 1 tab PO Q6H PRN diarrhea #20 tabs 03/14/ mg-0.025 mg tablet omeprazole 40 mg capsule,delayed 40 mg PO DAILY #90 caps 07/25/24 release xfqsmzaoro-fnqqjrwiiyqxp-flfhiick 1 cap PO Q6H PRN pain #30 caps 07/26/24 50 mg-300 mg-40 mg capsule (Fioricet) albuterol sulfate 90 mcg/actuation 1 puff inhalation Q4-6H PRN for 10/31/24 aerosol inhaler wheezing #18 grams alprazolam 0.25 mg tablet See Rx Instructions .Route 01/19/25 .COMPLEX #30 tabs sulfamethoxazole 800 1 tab PO BID #9 tabs 02/01/25 mg-trimethoprim 160 mg tablet (Bactrim DS) Allergies Allergy/AdvReac Type Severity Reaction Status Date / Time venom-honey bee (BEE VENOM Allergy Severe Anaphylaxis Verified 02/01/25 16:32 (HONEY BEE)) crab Allergy Intermediate SWELLING, Verified 02/01/25 16:32 RASH, HIVES amoxicillin (AMOXICILLIN) Allergy Mild RASH Verified 02/01/25 16:32 codeine (CODEINE) Allergy Mild Verified 02/01/25 16:32 doxycycline (DOXYCYCLINE) Allergy Unknown Verified 02/01/25 16:32 petrolatum,white (From AdvReac Mild FAINT FROM Verified 02/01/25 16:32 PETROLEUM JELLY) FUMES hydrocodone (From VICODIN) AdvReac Unknown N/V Verified 02/01/25 16:32 morphine (MORPHINE) AdvReac Unknown N/V Verified 02/01/25 16:32 Review of Systems Review of Systems ROS Unobtainable: All systems reviewed & are unremarkable except as noted in HPI and below Patient History Medical History Osteonecrosis of hip Dysuria Spinal stenosis of lumbar region CTS (carpal tunnel syndrome) Left rotator cuff tear Breast pain, right Gynecomastia, female Chronic sinusitis Fibromyalgia GERD (gastroesophageal reflux disease) IBS (irritable bowel syndrome) Asthma Sleep apnea Diverticular disease Degeneration of intervertebral disc of cervical region (05/25/13) Surgical History Deviated septum History of knee surgery Social History marital status: Smoking Status: Never smoker alcohol intake: never Smoking Status: Never smoker Exam Narrative Exam Narrative: GENERAL: Alert and oriented x three, female in mild distress HEENT: Head normocephalic, atraumatic, EOMI, pupils reactive, face symmetric, moist mucous membranes NECK: Supple, full range of motion CARDIOVASCULAR: Regular rate and rhythm without murmurs, rubs or gallops. RESPIRATORY: Breath sounds equal bilaterally, no wheezes rales or rhonchi. ABDOMEN: Soft, nontender. Normoactive bowel sounds all 4 quadrants. No guarding or rebound, rigidity, no mass : No CVA tenderness BACK: No cervical, thoracic or lumbar vertebral point tenderness. Patient has not area that is about 4-1/2 cm in circumference that is erythematous, slightly warm, fluctuant without any induration. It is only mildly tender. It is in the left lateral side of her spinal column does not directly over the spinal column but has a about a cm away. She has not no bony tenderness of her back. She has good range of motion. EXTREMITIES: Normal range of motion. Neurovascularly intact NEUROLOGICAL: Cranial nerves II through XII grossly intact. Moving all extremities SKIN: Warm, dry, no petechiae, no rashes or lesions. Initial Vital Signs Initial Vital Signs: Vital Signs Blood Pressure 177/79 H 02/01/25 16:17 Procedures Abscess I/D I&D #1: Site: back Side (if applicable): right Local Anesthetic: lidocaine 2% Amount of anesthesia used (mL): 6 Technique: needle aspiration and incised with #11 blade Amount of fluid expressed (mL): 30 Irrigation: Yes Packing used?: iodoform Course Orders Ordered: ED Orders 02/01/25 18:42 CT chest wo con Stat 02/01/25 20:40 Wound Culture and Gram Stain Stat Discontinued Medications Acetaminophen (Acetaminophen 325 Mg Tablet) 975 mg PO NOW ONE Stop: 02/01/25 18:44 Last Admin: 02/01/25 19:14 Dose: 975 mg Documented By: KHADAR Lidocaine HCl (Lidocaine 2% Inj Sdv 5ml) 10 ml SUBCUT NOW ONE Stop: 02/01/25 18:50 Last Admin: 02/01/25 19:14 Dose: 10 ml Documented By: KHADAR Trimethoprim/Sulfamethoxazole (Trimeth/Sulfa 160/800 (Ds) Tablet) 1 tab PO NOW ONE Stop: 02/01/25 20:53 Last Admin: 02/01/25 21:06 Dose: 1 tab Documented By: RAMYA Vital Signs Vital signs: Vital Signs - 8 hr 02/01/25 17:30 02/01/25 17:30 02/01/25 18:00 Pulse Rate 98 H Blood Pressure 115/59 L 125/78 Pulse Oximetry 97 02/01/25 18:00 02/01/25 18:30 02/01/25 19:01 Pulse Rate 98 H 94 H 78 Blood Pressure Pulse Oximetry 99 98 99 02/01/25 19:30 02/01/25 20:00 02/01/25 20:01 Pulse Rate 91 H 95 H Blood Pressure 127/73 Pulse Oximetry 97 97 02/01/25 20:01 02/01/25 21:55 02/01/25 21:56 Pulse Rate 92 H 98 H 97 H Blood Pressure Pulse Oximetry 98 97 96 02/01/25 21:56 Pulse Rate Blood Pressure 121/58 L Pulse Oximetry MDM - Skin/Abscess/Foreign Bdy MDM Narrative Medical decision making narrative: 79-year-old female sort appears to be in recurrent abscess on her thoracic back. Because of its proximity to her spinal column CT imaging was obtained. CT chest without contrast midline back subcutaneous fluid collection versus soft tissue mass measuring up to 5.5 cm ultrasound could exclude solid mass severe bilateral shoulder arthropathy. Trachea fluid collections likely representing effusion or bursitis. Atherosclerosis. Patient had a Tylenol. Patient gave verbal consent for I and D, had about 30 mL out purulent fluid, wound culture was collected and sent. Patient tolerated well. Discussed return precautions we will give short course of oral antibiotic patient is to follow up for rechecked. Discharge Plan Departure Patient Disposition: Home Clinical Impression: Thoracic abscess Instructions: DI for Skin Abscess Activity Restrictions/Additional Instructions: You have had an abscess on your back drained here in the department today that has quite a bit of purulent fluid. A culture was sent to the lab. If it shows resistance your antibiotic you would be contacted. You can continue with the acetaminophen. Take oral antibiotics until completed, prescription [facility] to [facility] Wound Care: Keep wound(s) clean and dry. Wash daily with soap and water only. Use warm compresses 2 or 3 times daily for 10 minutes. If packing has not fallen out after 48 hours it can be removed by your home health nurse or your self by pulling lightly. If you prefer you can return for re-evaluation of your wound as well. Do not use over the counter products (alcohol or peroxide)on the wounds unless instructed by a physician. You can use a topical triple antibiotic ointment to the affected area. If wound condition worsens (increased/expanding redness, developing fluid blisters, or worsening pain), either contact your doctor for an urgent re-assessment , or return to the Emergency Department. Return if fever greater than 100.4 Fahrenheit, increased swelling, increasing pain or worsening symptoms such as increased discharge or spreading redness. Prescriptions: New sulfamethoxazole-trimethoprim [Bactrim DS] 800-160 mg tablet 1 tab PO BID Qty: 9 0RF No Action diphenoxylate-atropine 2.5-0.025 mg tablet 1 tab PO Q6H PRN (Reason: diarrhea) Qty: 20 0RF omeprazole 40 mg capsule,delayed release(DR/EC) 40 mg PO DAILY Qty: 90 3RF bpjwtbkvog-hgukjbpaeuuow-oapn [Fioricet] 50-300-40 mg capsule 1 cap PO Q6H PRN (Reason: pain) Qty: 30 0RF Rx Instructions: I called this medication into Vel the pharmacist at [facility]-he will insure that they are the white tablets albuterol sulfate 90 mcg/actuation HFA aerosol inhaler 1 puff inhalation Q4-6H PRN (Reason: for wheezing) Qty: 18 5RF alprazolam 0.25 mg tablet See Rx Instructions .ROUTE .COMPLEX Qty: 30 0RF Dose Instruction: TAKE 1 TABLET BY MOUTH ONCE DAILY NEEDED FOR ANXIETY ([facility] ONLY)MUST LAST 30 DAYS. Rx Instructions: TAKE 1 TABLET BY MOUTH ONCE DAILY NEEDED FOR ANXIETY ([facility] ONLY)MUST LAST 30 DAYS. acetaminophen 500 mg tablet 1,000 mg PO Q8H PRN Lubricant (g-uyqqvh-ajppqkgg) 1-0.3 % drops 2 drp EYE-BOTH TID PRN (Reason: dry eyes) lidocaine 4 % adhesive patch,medicated 2 patch topical DAILY PRN (Reason: pain) Rx Instructions: apply to neck and shoulder, remove at bedtime potassium chloride 20 mEq tablet extended release 20 meq PO BID hydroxychloroquine 200 mg tablet 200 mg PO DAILY cyanocobalamin (vitamin B-12) 500 mcg tablet 1,000 mcg PO DAILY aspirin 81 mg tablet 81 mg PO BID cholecalciferol (vitamin D3) 25 mcg (1,000 unit) capsule 50 mcg PO DAILY dicyclomine 20 mg tablet 20 mg PO QID PRN (Reason: ulcerative colitis) Referrals: Nithin Adkins MD [Primary Care Provider, Family Practice] Stand Alone Forms: Patient Portal/API
--- NOTE | 2025-02-01 18:42 | DI.CT.S_ITS ---
P assess tendon the ROCEDURE: CT CHEST WO CON INDICATIONS: thoracic back abscess adjacent spinal column TECHNIQUE: Noncontrast 5 mm thick sections acquired from the pulmonary apices to the posterior costophrenic angles. 1 mm lung window, 5 mm thick coronal and sagittal and 7 mm axial MIP reformats were then acquired. For radiation dose reduction, the following was used: automated exposure control, adjustment of mA and/or kV according to patient size. COMPARISON: None. FINDINGS: Image quality: Diagnostic. Lower Neck: No enlarged lymph nodes. Thyroid: No thyroid nodules which require sonographic follow up, per consensus guidelines. Axillae: No enlarged lymph nodes. Chest Wall: Right midline at the mid back abutting the skin and deep muscle fascia is an approximately 5.5 x 4.6 x 2.4 cm fluid collection or soft tissue mass. Bones: Severe degenerative change of the thoracic spine and bilateral shoulders. Large periarticular fluid collections at the bilateral shoulder joints partially imaged. Lungs and Pleura: No pneumothorax or pleural effusions. No consolidation or suspicious nodules. Heart: Heart size is normal. No pericardial effusion. Coronary calcifications. Thoracic Vessels: The aorta and pulmonary arteries demonstrate normal size. Severe atherosclerotic calcification and aortic ectasia. Mediastinum and Olga: No enlarged lymph nodes. Esophagus: No wall thickening. No hiatal hernia. Upper Abdomen: Visualized upper abdomen solid organs and bowel loops appear normal. IMPRESSION: Midline back subcutaneous fluid collection versus soft tissue mass measuring up to 5.5 cm. Ultrasound could exclude solid mass. Severe bilateral shoulder arthropathy with periarticular fluid collections likely representing effusion and bursitis. Atherosclerosis. Dictated by: Alberto Peterson M.D. on 02/01/2025 at 19:13 Approved by: Alberto Peterson M.D. on 02/01/2025 at 19:20
[2025-02-01] MEDS: ACETAMINOPHEN 325 MG TABLET 975 MG PO (19:14)
[2025-02-01] MEDS: LIDOCAINE 2% INJ SDV 5ML 10 ML SUBCUT (19:14)
[2025-02-01] MEDS: TRIMETH/SULFA 160/800 (DS) TABLET 1 TAB PO (21:06)
== END 2025-02-01 22:15 | disposition home or self-care (01) ==
PROVIDERS: Emergency Provider Emergency Medicine; Family Provider Family Medicine; PCP Family Medicine
DX: L02.212 Cutaneous abscess of back [any part, except buttock and flank] (principal)
CPT/HCPCS: 10060; 71250; 87070; 87075; 87205; 99283; 99284

== ENCOUNTER → 2025-02-09 14:02 | Outpatient (CLI) | payer OTHER, SELFPAY ==
[2025-02-09 15:29] LABS: Blood Urea Nitrogen 13 mg/dL (7-17); Calcium 10.0 mg/dL (8.4-10.2); Carbon Dioxide 22 mmol/L (22-32); Chloride 100 mmol/L (98-107); Estimated Glomerular Filt Rate > 60 mL/min (>60); Glucose 105 mg/dL (70-99); HEMOLYSIS < 15 (0-50); Potassium 4.5 mmol/L (3.4-5.1); Sodium 133 mmol/L (137-145)
== END ==
PROVIDERS: Family Provider Family Medicine; PCP Family Medicine; Referring Provider Family Medicine; Visit Provider Family Medicine
DX: E87.6 Hypokalemia (principal)
CPT/HCPCS: 36415; 80048

== ENCOUNTER → 2025-03-09 12:48 | Outpatient (CLI) | payer OTHER, SELFPAY ==
--- NOTE | 2025-03-09 12:50 | DI.RAD.S_ITS ---
PROCEDURE: XR TIBIA FIBULA LT 2V INDICATIONS: Follow up post surgery TECHNIQUE: 2 views of the tibia and fibula were acquired. COMPARISON: [facility], CR, XR HIP W PEL LT 2V, 03/09/2025, 13:01. FINDINGS: Bones: There is a tibial bk seen which appears intact. Remodeling fractures can be seen involving the distal tibia and distal fibula. Generalized osteopenia and degenerative change can be seen. Soft tissues: No suspicious soft tissue calcifications or masses. IMPRESSION: Intact appearing hardware. Remodeling fractures of the distal tibia and distal fibula. The Dictated by: Eduard Perea M.D. on 03/11/2025 at 19:57 Approved by: Eduard Perea M.D. on 03/11/2025 at 19:57
--- NOTE | 2025-03-09 12:50 | DI.RAD.S_ITS ---
PROCEDURE: XR HIP W PEL IF DONE LT 2V INDICATIONS: Follow up post surgery TECHNIQUE: AP pelvis with lateral view(s) of the left hip(s). COMPARISON: [facility], CR, XR HIP W PEL IF DONE HAMLET 3TO4V, 05/05/2023, 12:20. Outside Film, MR, MR HIP LEFT WITHOUT CONTRAST, 06/19/2023, 13:44. [facility], CR, XR TIBIA FIBULA LT 2V, 03/09/2025, 13:01. FINDINGS: Bones: Left hip arthroplasty hardware is seen. No findings of hardware failure or hardware loosening are seen. There is severe right hip degenerative change. Age-appropriate lower lumbar spine degenerative changes are noted. No fractures or dislocations. Pelvic ring appears intact. No suspicious bony lesions. Soft tissues: The visualized bowel gas pattern is normal. No suspicious soft tissue calcifications. Atherosclerotic calcification is noted. IMPRESSION: Unremarkable left hip arthroplasty hardware. Severe contralateral right hip degenerative change. Dictated by: Eduard Perea M.D. on 03/11/2025 at 19:58 Approved by: Eduard Perea M.D. on 03/11/2025 at 19:58
[2025-03-09 14:06] LABS: Blood Urea Nitrogen 12 mg/dL (7-17); Calcium 9.5 mg/dL (8.4-10.2); Carbon Dioxide 24 mmol/L (22-32); Chloride 104 mmol/L (98-107); Estimated Glomerular Filt Rate > 60 mL/min (>60); Glucose 91 mg/dL (70-99); HEMOLYSIS < 15 (0-50); Potassium 4.3 mmol/L (3.4-5.1); Sodium 136 mmol/L (137-145)
== END ==
PROVIDERS: Family Provider Family Medicine; PCP Family Medicine; Referring Provider Family Medicine; Visit Provider Physician Assistant
DX: Z87.81 Personal history of (healed) traumatic fracture (principal); Z96.642 Presence of left artificial hip joint; E87.6 Hypokalemia
CPT/HCPCS: 36415; 73502; 73590; 80048